=== PATIENT | male | born 1960 | race Caucasian/White ===

== ENCOUNTER 2021-04-30 08:58 | Emergency (ER) | payer BC, SELFPAY ==
--- NOTE | ~2021-04-30 | XR_ITS ---
EXAMINATION: XR CHEST CLINICAL INFORMATION: Fever COMPARISON: None TECHNIQUE: AP portable view of the chest was obtained. FINDINGS: There are diffuse bilateral regions of parenchymal disease with somewhat groundglass appearance and a more peripheral distribution consistent with Covid 19/viral pneumonitis. Heart normal size. No evidence of pulmonary edema. No pneumothorax or pleural effusion. XR/XR chest 1V IMPRESSION: Findings suggestive of viral pneumonitis.
--- NOTE | 2021-04-30 09:18 | ECG_ITS ---
Test Reason : sob Blood Pressure : / mmHG Vent. Rate : 101 BPM Atrial Rate : 101 BPM P-R Int : 152 ms QRS Dur : 086 ms QT Int : 350 ms P-R-T Axes : 031 -10 021 degrees QTc Int : 453 ms Sinus tachycardia Otherwise normal ECG No previous ECGs available Referred By: Jovita Rebolledo Electronically Signed By:FAUSTO STATON MD
[2021-04-30 09:20] VITALS: BP 137/91; PULSE 102; RESP 20; TEMP 38.2; O2SAT 96; BMI 34.7
--- NOTE | 2021-04-30 09:20 | ED_ITS ---
HPI - URI/Sore Throat General Chief Complaint: Dyspnea Stated Complaint: SOB COVID + Time Seen by Provider: 04/30/21 09:09 Source: patient Mode of arrival: ambulatory Limitations: no limitations History of Present Illness HPI Narrative: unvaccinated COVID + on Wednesday comes in with c/o coughing fits that make him feel short of breath but denies feeling chest pain or short of breath at rest or when he's walking MD elicited complaint: cough Pertinent past history: other (COVID positive on Wednesday) Onset (ago): day(s) (Wednesday) Consistency: intermittent Severity: mild Able to tolerate fluids by mouth: Yes Exacerbating factors: other (coughing) Relieving factors: rest Context: other (not vaccinated) Associated symptoms: myalgias and cough Treatments prior to arrival: none Related Data Previous Rx's Medication Instructions Recorded azithromycin 250 mg tablet 250 mg PO DAILY 4 Days #4 tab 04/30/21 benzonatate 100 mg capsule 100 mg PO TID PRN #20 cap 04/30/21 dexamethasone 6 mg tablet 6 mg PO DAILY 6 Days #6 tab 04/30/21 Allergies Allergy/AdvReac Type Severity Reaction Status Date / Time No Known Allergies Allergy Verified 04/30/21 09:18 Review of Systems Review of Systems: Constitutional : no Fever, positive Chills, positive fatigue, positive Malaise ENT/Mouth : no sore throat, positive runny nose Eyes: No Discharge Cardiovascular : No Chest Pain, No SOB Respiratory : pos Cough, No Sputum Gastrointestinal : No Nausea, No Vomiting, No Diarrhea Genitourinary : No Dysuria, No Urinary Frequency Musculoskeletal : positive Myalgia Skin : No rash Neuro : No Headache All other systems reviewed and are negative [facility] Past Medical History Medical History Diabetes TBI (traumatic brain injury) Social History Social History (Updated 04/30/21 @ 15:47 by Jovita Rebolledo DO) Patient Tobacco Use Status: Former Tobacco user Advance Directives: No Advance Directives Information Provided: No Physical Exam Vital Signs: Vital Signs: Last Vital Signs Temp 99.7 F 04/30/21 11:20 Pulse 101 H 04/30/21 09:42 Resp 18 04/30/21 09:42 BP 137/91 H 04/30/21 09:20 Pulse Ox 96 04/30/21 09:20 BMI result Body Mass Index 34.7 Appearance: Alert. Oriented X3. No acute distress. Did not drop below 96% when ambulating x 2 minutes Eyes: Pupils equal, round and reactive to light. ENT: Pharynx normal. Neck: Normal inspection. Neck supple. CVS: tachycardic heart rate and rhythm. Pulses normal. Respiratory: No respiratory distress. Breath sounds scant rhonchi dry bronchospastic cough Abdomen: Soft and non-tender. Skin: Skin warm and dry. Normal skin color. Normal skin turgor. Extremities: No lower extremity edema. No calf ttp Neuro: Oriented X 3. No motor deficit. No sensory deficit. MDM - URI/Sore Throat MDM Narrative Medical decision making narrative: 60 yo male with COVID here with c/o coughing fits that cause dyspnea he has no chest pain or shortness of breath at baseline to suggest PE/ACS - he was ambulated at bedside by me for 2 minutes with lowest sat of 96%. At this time his main complaint is cough with fits - will obtain EKG, CXR, give INH and tessalon. I did refer him to mAb therapy and did discuss with family and the patient that given his age/DM he will likely decompensate from this in the next two days and he needs to be vigilant. ECG Data Attestation: I personally reviewed and interpreted this ECG as follows: ECG interpretation date: 04/30/21 ECG interpretation time: 09:38 Interpretation: Rate: 101 Rhythm: sinus tachycardia [place]: left Normal P waves. Normal SERGE. Normal QRS complex. ST T wave : normal no SMILEY qTC: normal prior studies: no acute ischemia The study has been interpreted contemporaneously by me. . Discharge Plan Discharge Clinical Impression: COVID-19, Pneumonia due to COVID-19 virus Patient Disposition: Home, Self-Care Instructions: Viral Pneumonia (ED), COVID-19 (Coronavirus Disease 2019) (ED) Additional Instructions: return to ED for any worsening symptoms or concerns return if oxygen saturations drop below 91% if you feel worse or if your breathing declines - I am very concerned that in the next 48 hours you might worsen the steroids will increase your blood sugar please attempt to get monoclonal antibody therapy YOU CAN USE THE INHALER TAKE 2 PUFFS EVERY 2 TO 4 HOURS NEEDED FOR COUGH AND SHORTNESS OF BREATH Prescriptions: New dexamethasone 6 mg tablet 6 mg PO DAILY 6 Days Qty: 6 RF: 0 azithromycin 250 mg tablet 250 mg PO DAILY 4 Days Qty: 4 RF: 0 benzonatate 100 mg capsule 100 mg PO TID PRN (Reason: cough) Qty: 20 RF: 0 Interventions: ED Discharge Assessment Last Done: 04/30/21 11:23 Discharge Date/Time: 04/30/21 11:24
[2021-04-30] MEDS: Benzonatate 100 MG CAPSULE PO (09:39)
[2021-04-30] MEDS: Acetaminophen 325 MG TABLET 650 MG PO (09:39)
[2021-04-30 09:42] VITALS: PULSE 101; RESP 18; O2SAT 96
[2021-04-30] MEDS: Albuterol Sulfate 90 MCG 8 GM INHALER 2 PUFF INHALE (09:42)
[2021-04-30] MEDS: dexAMETHasone 6 MG TABLET PO (11:19)
[2021-04-30] MEDS: Azithromycin 500 MG TABLET PO (11:19)
[2021-04-30 11:20] VITALS: TEMP 37.6
== END 2021-04-30 11:24 | disposition home or self-care (01) ==
PROVIDERS: Emergency Provider Emergency Medicine; PCP Family Medicine
DX: U07.1 COVID-19 (principal); J12.82 Pneumonia due to coronavirus disease 2019; E11.9 Type 2 diabetes mellitus without complications; Z87.820 Personal history of traumatic brain injury
CPT/HCPCS: 71045; 93005; 94640; 99283; 99284; J8540

== ENCOUNTER 2021-05-03 08:52 | Inpatient (IN) | payer BC, SELFPAY ==
[2021-05-03] VITALS (9 sets, daily range): BP systolic 118–131; BP diastolic 69–86; PULSE 73–103; RESP 18–28; TEMP 36.7–36.8; O2SAT 88–98; BMI 349.9
--- NOTE | ~2021-05-03 | XR_ITS ---
EXAMINATION: XR CHEST CLINICAL INFORMATION: SOB COMPARISON: Chest 04/30/2021 TECHNIQUE: Frontal view of the chest was obtained. FINDINGS: The lungs are expanded with bibasilar patchy opacity suggestive of infiltrates. The heart size and pulmonary vascularity is normal. No gross bony abnormality seen. XR/XR chest 1V IMPRESSION: Bibasilar infiltrates. No acute process seen.
--- NOTE | ~2021-05-03 | XR_ITS ---
EXAMINATION: XR CHEST CLINICAL INFORMATION: Worsening shortness of breath. COMPARISON: CTA of the chest done earlier today at 04/15/2020 a.m. Chest radiograph done earlier today at 9:25 AM. TECHNIQUE: AP view of the chest was obtained. FINDINGS: Redemonstration of multifocal airspace opacities which appear slightly increased in density and size in the area of the left lower lobe. No pleural effusion or pneumothorax. Unchanged appearance of the cardiomediastinal silhouette. No acute osseous abnormalities. XR/XR chest 1V IMPRESSION: Multifocal airspace opacities which appeared increased in the left lower lobe when compared to a chest radiograph from earlier today.
--- NOTE | ~2021-05-03 | CT_ITS ---
EXAMINATION: CT ANGIOGRAM OF THE CHEST WITH AND WITHOUT CONTRAST (CT PULMONARY ANGIOGRAM FOR PE) CLINICAL INFORMATION: Reason for Exam hypoxia, COVID, elevated D-DIMER COMPARISON: None TECHNIQUE: Prior to contrast administration, noncontrast localization images were obtained. Subsequently, multidetector volumetric imaging was performed from the thoracic inlet to below the diaphragms following the administration of 80 mL Omnipaque 350 intravenous contrast. No contrast reaction reported Sagittal, coronal, and MIP oblique sagittal reformatted images were obtained on the CT workstation, uploaded to PACS, and reviewed. This CT examination was performed using dose optimization techniques as appropriate, variously including the following: *Automated exposure control *Adjustment of mA and/or kV according to patient size (this includes techniques or standardized protocols for targeted exams where dose is matched to indication/reason for exam; i.e. extremities or head) *Use of iterative reconstruction technique Total exam dose-length product 418 mGy-cm FINDINGS: QUALITY OF STUDY/CONTRAST BOLUS: Satisfactory. PULMONARY ARTERIES: No central or segmental pulmonary emboli. THORACIC AORTA: No aneurysm or dissection. LUNG: The lungs are expanded diffuse patchy linear parenchymal opacities in both upper lobes, right middle lobe, lingula and both lower lobes consistent with rhodes lobular infiltrates PLEURA: No pleural effusion or pneumothorax. MEDIASTINUM: Heart size is normal. No pericardial effusion seen. The central trachea and the bronchi widely patent. The thyroid lobes are symmetrical. No evidence of septal bowing or right heart strain. CHEST WALL/AXILLA: No axillary or internal mammary lymphadenopathy. OSSEOUS STRUCTURES: No acute or suspicious osseous abnormality. UPPER ABDOMEN: Visualized liver, spleen, pancreas and bilateral adrenal glands are unremarkable. No reflux of contrast into the hepatic veins to suggest elevated right heart pressures. CT/CT angio chest PE protocol IMPRESSION: No evidence of PE. No evidence aortic dissection. Diffuse extensive bilateral infiltrates most suggestive of Covid disease. VTE: negative
--- NOTE | 2021-05-03 08:58 | ECG_ITS ---
Test Reason : COVID Blood Pressure : / mmHG Vent. Rate : 087 BPM Atrial Rate : 087 BPM P-R Int : 144 ms QRS Dur : 092 ms QT Int : 374 ms P-R-T Axes : 042 -12 -03 degrees QTc Int : 450 ms Normal sinus rhythm Nonspecific T wave abnormality Abnormal ECG When compared with ECG of 30-APR-2021 09:33, No significant change was found Referred By: Judith Maher Electronically Signed By:FAUSTO STATON MD
--- NOTE | 2021-05-03 09:13 | ED.SOB ---
HPI - SOB/Dyspnea General Chief Complaint: Dyspnea Stated Complaint: COVID +, SOB Time Seen by Provider: 05/03/21 08:57 Source: patient and family Mode of arrival: ambulatory Limitations: no limitations History of Present Illness HPI Narrative: 60 y/o male with history of DM, TBI and recent diagnosis of COVID-19 on 04/25 (symptoms started 04/21) who presents to the ER with SOB and FAY. He was extremely short of breath this morning and found his oxygen saturations to be 77% on room air. He has been monitoring them intermittently at home with a at home pulse oximeter. He is not on oxygen at baseline. He was seen in the ER on 04/30 with some shortness of breath and coughing fits. His chest x-ray showed diffuse ground-glass opacities but his oxygen saturations remained in the 90s even with exertion. He was discharged with Decadron, azithromycin, and Tessalon. He has been compliant with the medications. He states his shortness of breath has been worsening mostly with exertion. He has to stop and catch his breath even when he takes short walks to the bathroom. He has some intermittent lightheadedness but has not felt like he was going to pass out and has not passed out. He has no chest pain. He has no nausea, vomiting, abdominal pain but admits to a decreased appetite. He is on vaccinated for COVID. No pulmonary history. MD elicited complaint: shortness of breath Pertinent past history: diabetes Onset (ago): day(s) Context: recent illness and occurred during exertion Timing: intermittent and progressively worsening Severity: severe Exacerbating factors: exertion and coughing Relieving factors: rest Known history of: diabetes Associated symptoms: cough, wheezing, chest congestion and lightheadedness Treatment prior to arrival: none Related Data Home oxygen amount: none Home Medications Medication Instructions Recorded Confirmed atorvastatin 20 mg tablet 1 tab PO BEDTIME 05/03/21 05/03/21 dapagliflozin 10 mg tablet 1 tab PO DAILY 05/03/21 05/03/21 ([facility]) glipizide 10 mg tablet 1 tab PO BID 05/03/21 05/03/21 insulin glargine U-300 conc 300 10 unit SUBCUT BEDTIME 05/03/21 05/03/21 unit/mL (1.5 mL) subcutaneous pen (Toujeo SoloStar U-300 Insulin) metformin 500 mg tablet,extended 2 tab PO BID 05/03/21 05/03/21 release 24 hr pioglitazone 45 mg tablet 1 tab PO DAILY 05/03/21 05/03/21 Previous Rx's Medication Instructions Recorded azithromycin 250 mg tablet 250 mg PO DAILY 4 Days #4 tab 04/30/21 benzonatate 100 mg capsule 100 mg PO TID PRN #20 cap 04/30/21 dexamethasone 6 mg tablet 6 mg PO DAILY 6 Days #6 tab 04/30/21 Allergies Allergy/AdvReac Type Severity Reaction Status Date / Time No Known Allergies Allergy Verified 04/30/21 09:18 Review of Systems Review of Systems: Constitutional: No Fever, No Chills ENT/Mouth: No sore throat, No Rhinorrhea, No Swallowing Difficulty Eyes: No Eye Pain, No Swelling, No Redness Cardiovascular: No Chest Pain, + SOB, No Orthopnea, No Edema Respiratory: + Cough, No Sputum, + Wheezing, + dyspnea Gastrointestinal: No Nausea, No Vomiting, No Diarrhea, No abdominal Pain, No Hematochezia, No Melena Genitourinary: No Dysuria, No Urinary Frequency, No Hematuria Musculoskeletal: No joint pain, + Myalgias Skin: No Skin Lesions, No rash Neuro: No Weakness, No Numbness, No Dizziness, + Headache Psych: No Anxiety/Panic, No Depression Heme/Lymph: No Bruising, No Lymphadenopathy Endocrine: No Polyuria, No Polydipsia [facility] Past Medical History Medical History (Updated 05/03/21 @ 11:44 by WESTLEY Gibbs) Diabetes TBI (traumatic brain injury) Surgical History (Updated 05/03/21 @ 09:20 by Maria D Emanuel) History of appendectomy Social History Social History (Updated 04/30/21 @ 15:47 by Jovita Rebolledo DO) Patient Tobacco Use Status: Former Tobacco user Use of substances other than those prescribed or required for medical reasons: No Advance Directives: No Advance Directives Information Provided: No Physical Exam Vital Signs: Vital Signs: Last Vital Signs Temp 98.1 F 05/03/21 09:16 Pulse 103 H 05/03/21 12:07 Resp 28 H 05/03/21 12:07 BP 125/71 05/03/21 12:07 Pulse Ox 89 L 05/03/21 12:07 BMI result Body Mass Index 349.9 Appearance: Alert. Oriented X3. No acute distress. Eyes: Pupils equal, round and reactive to light. ENT: Pharynx normal. Neck: Normal inspection. Neck supple. CVS: Normal heart rate and rhythm. Pulses normal. Respiratory: No respiratory distress. Breath sounds corase throughtout with ins/exp wheeze throughout the left lung Abdomen: Soft and nontender. +BS x4 Skin: Skin warm and dry. Normal skin color. Normal skin turgor. No rashes. Extremities: No lower extremity edema. No calf tenderness Neuro: Oriented X 3. No motor deficit. No sensory deficit. Course Course Course Narrative: 52-year-old male with a history of TBI, diabetes, and recently diagnosed COVID-19 who presents to the ER with worsening shortness of breath, dyspnea on exertion and new hypoxia. On arrival to the ER he is saturating 88% on room air at rest. He was slightly tachypneic in the mid 20s. No accessory muscle use. He was placed on 2 L nasal cannula with improvement in oxygen saturation to 94-95%. Will repeat CXR, EKG and inflammatory markers. Will give albuterol given wheezing. IV decadron ordered. Anticipate admission. Reevaluation(s) Reevaluation #1: Chest x-ray again showing diffuse ground-glass opacities. Aeration improved after nebulizer treatment. D-dimer elevated in the 800s. Will get CTA to rule out PE. Reevaluation #2: CTA showed no PE. Ground-glass opacities seen diffusely consistent with COVID pneumonia. Will plan for admission for further management. MDM - SOB/Dyspnea Medical Records Attestation: I reviewed the patient's medical records. Lab Data Attestation: I reviewed the patient's lab results. Result diagrams: 05/03/21 09:42 05/03/21 09:42 Labs: Lab Results 05/03/21 05/03/21 05/03/21 Range/Units 09:42 09:42 09:42 WBC 12.4 H (4.8-10.8) X10*3/uL RBC 4.88 (4.60-5.80) X10*6/uL Hgb 14.6 (14.0-18.0) g/dl Hct 41.7 L (42.0-52.0) % MCV 85.5 (80.0-98.0) fL MCH 29.9 (27.0-33.0) pg MCHC 35.0 (31.0-36.0) g/dl RDW 13.2 (11.0-16.0) % Plt Count 178 (160-400) X10*3/uL MPV 10.7 (9.4-12.4) fL Immature Gran % (Auto) 0.5 H (0.0-0.4) % Neut % (Auto) 85.6 H (45-73) % Lymph % (Auto) 9.6 L (20-40) % [place] % (Auto) 4.3 (2-11) % Eos % (Auto) 0.0 (0-4) % Baso % (Auto) 0.0 (0-2) % Lymph # (Auto) 1.2 (1.2-4.9) X10*3/uL [place] # (Auto) 0.5 (0.1-1.2) X10*3/uL Eos # (Auto) 0.0 (0.0-0.4) X10*3/uL Baso # (Auto) 0.0 (0.0-0.2) X10*3/uL Abs Immat Gran (auto) 0.06 H (0.00-0.03) X10*3/uL Absolute Neuts (auto) 10.6 H (2.0-8.3) x10*3/uL Absolute Nucleated RBC 0.000 (0.0-0.012) X10*3/uL Nucleated RBC % (auto) 0.0 (0.0-0.2) /100WBC Smear Tech's Comments VERIFIED D-Dimer High Sensitivty NG/ML Sodium 135 (135-145) mmol/L Potassium 4.8 (3.3-5.1) mmol/L Chloride 101 (96-108) mmol/L Carbon Dioxide 22 (22-29) mmol/L Anion Gap 17 (12-20) BUN 23 H (9-16) mg/dL Creatinine 0.84 (0.5-1.4) mg/dL Estim Creat Clear Calc 640.5 Estimated GFR > 60 Random Glucose 170 H (60-115) mg/dL Lactic Acid 1.3 (0.5-2.0) mmol/L Calcium 9.1 (8.4-10.2) mg/dL Magnesium 2.2 (1.6-2.6) mg/dL Ferritin 2068 H (20-250) ng/mL Total Bilirubin 0.9 (0.0-1.0) mg/dL Direct Bilirubin 0.4 (0.0-0.5) mg/dL AST 52 H (5-37) U/L ALT 29 (0-40) U/L Alkaline Phosphatase 78 (39-117) U/L C-Reactive Protein 2.63 H (< or = 0.50) mg/dL B-Natriuretic Peptide (<100) pg/mL Total Protein 6.9 (6.5-8.0) g/dL Albumin 3.8 (3.5-5.0) g/dL Procalcitonin ng/mL 05/03/21 05/03/21 05/03/21 Range/Units 09:42 09:42 09:42 WBC (4.8-10.8) X10*3/uL RBC (4.60-5.80) X10*6/uL Hgb (14.0-18.0) g/dl Hct (42.0-52.0) % MCV (80.0-98.0) fL MCH (27.0-33.0) pg MCHC (31.0-36.0) g/dl RDW (11.0-16.0) % Plt Count (160-400) X10*3/uL MPV (9.4-12.4) fL Immature Gran % (Auto) (0.0-0.4) % Neut % (Auto) (45-73) % Lymph % (Auto) (20-40) % [place] % (Auto) (2-11) % Eos % (Auto) (0-4) % Baso % (Auto) (0-2) % Lymph # (Auto) (1.2-4.9) X10*3/uL [place] # (Auto) (0.1-1.2) X10*3/uL Eos # (Auto) (0.0-0.4) X10*3/uL Baso # (Auto) (0.0-0.2) X10*3/uL Abs Immat Gran (auto) (0.00-0.03) X10*3/uL Absolute Neuts (auto) (2.0-8.3) x10*3/uL Absolute Nucleated RBC (0.0-0.012) X10*3/uL Nucleated RBC % (auto) (0.0-0.2) /100WBC Smear Tech's Comments D-Dimer High Sensitivty 864 NG/ML Sodium (135-145) mmol/L Potassium (3.3-5.1) mmol/L Chloride (96-108) mmol/L Carbon Dioxide (22-29) mmol/L Anion Gap (12-20) BUN (9-16) mg/dL Creatinine (0.5-1.4) mg/dL Estim Creat Clear Calc Estimated GFR Random Glucose (60-115) mg/dL Lactic Acid (0.5-2.0) mmol/L Calcium (8.4-10.2) mg/dL Magnesium (1.6-2.6) mg/dL Ferritin (20-250) ng/mL Total Bilirubin (0.0-1.0) mg/dL Direct Bilirubin (0.0-0.5) mg/dL AST (5-37) U/L ALT (0-40) U/L Alkaline Phosphatase (39-117) U/L C-Reactive Protein (< or = 0.50) mg/dL B-Natriuretic Peptide 42 (<100) pg/mL Total Protein (6.5-8.0) g/dL Albumin (3.5-5.0) g/dL Procalcitonin 0.26 ng/mL 05/03/21 Range/Units 09:42 WBC (4.8-10.8) X10*3/uL RBC (4.60-5.80) X10*6/uL Hgb (14.0-18.0) g/dl Hct (42.0-52.0) % MCV (80.0-98.0) fL MCH (27.0-33.0) pg MCHC (31.0-36.0) g/dl RDW (11.0-16.0) % Plt Count (160-400) X10*3/uL MPV (9.4-12.4) fL Immature Gran % (Auto) (0.0-0.4) % Neut % (Auto) (45-73) % Lymph % (Auto) (20-40) % [place] % (Auto) (2-11) % Eos % (Auto) (0-4) % Baso % (Auto) (0-2) % Lymph # (Auto) (1.2-4.9) X10*3/uL [place] # (Auto) (0.1-1.2) X10*3/uL Eos # (Auto) (0.0-0.4) X10*3/uL Baso # (Auto) (0.0-0.2) X10*3/uL Abs Immat Gran (auto) (0.00-0.03) X10*3/uL Absolute Neuts (auto) (2.0-8.3) x10*3/uL Absolute Nucleated RBC (0.0-0.012) X10*3/uL Nucleated RBC % (auto) (0.0-0.2) /100WBC Smear Tech's Comments D-Dimer High Sensitivty NG/ML Sodium (135-145) mmol/L Potassium (3.3-5.1) mmol/L Chloride (96-108) mmol/L Carbon Dioxide (22-29) mmol/L Anion Gap (12-20) BUN (9-16) mg/dL Creatinine (0.5-1.4) mg/dL Estim Creat Clear Calc Estimated GFR Random Glucose (60-115) mg/dL Lactic Acid (0.5-2.0) mmol/L Calcium (8.4-10.2) mg/dL Magnesium (1.6-2.6) mg/dL Ferritin Cancelled (20-250) ng/mL Total Bilirubin (0.0-1.0) mg/dL Direct Bilirubin (0.0-0.5) mg/dL AST (5-37) U/L ALT (0-40) U/L Alkaline Phosphatase (39-117) U/L C-Reactive Protein (< or = 0.50) mg/dL B-Natriuretic Peptide (<100) pg/mL Total Protein (6.5-8.0) g/dL Albumin (3.5-5.0) g/dL Procalcitonin ng/mL ECG Data Attestation: I personally reviewed and interpreted this ECG as follows: ECG interpretation date: 05/03/21 ECG interpretation time: 11:43 Prior ECG tracings: available for review Interpretation: Normal sinus rhythm, heart rate 87 ppm, [place] interval 144 MS, nonspecific T-wave abnormality, no ST segment elevations or depressions. Critical Care Time Critical Care Time Critical Care Time: Yes Total Critical Care Time: 41 Attestation: I have personally provided critical care time exclusive of time spent on separately billable procedures. Time includes review of lab data, radiology results, discussion with consultants/hospitalists, and monitoring for potential decompensation. Intervention performed as documented. Discharge Plan Discharge Clinical Impression: COVID-19, Acute respiratory failure with hypoxia Patient Disposition: Admitted As Inpatient
[2021-05-03] MEDS: dexAMETHasone sod phosphate 4 MG/ML VIAL 8 MG IVPUSH (09:45)
[2021-05-03 09:50] LABS: Hematocrit 41.7 % (42.0-52.0); Hemoglobin 14.6 g/dl (14.0-18.0); Imm Gran Abs Auto 0.06 X10*3/uL (0.00-0.03); Imm Gran Pct Auto 0.5 % (0.0-0.4); Lymphocytes Absolute Auto 1.2 X10*3/uL (1.2-4.9); Lymphocytes Percent Auto 9.6 % (20-40); MANUAL DIFF FLAG SCAN; Mean Corpuscular Hemoglobin 29.9 pg (27.0-33.0); Mean Corpuscular Volume 85.5 fL (80.0-98.0); Mean Platelet Volume 10.7 fL (9.4-12.4); Monocytes Absolute Auto 0.5 X10*3/uL (0.1-1.2); Monocytes Percent Auto 4.3 % (2-11); Neutrophils Absolute Auto 10.6 x10*3/uL (2.0-8.3); Neutrophils Percent Auto 85.6 % (45-73); Platelet Count 178 X10*3/uL (160-400); Red Blood Count 4.88 X10*6/uL (4.60-5.80); Red Cell Distribution Width 13.2 % (11.0-16.0); SCAN SMEAR FLAG 1; White Blood Count 12.4 X10*3/uL (4.8-10.8)
[2021-05-03 10:00] LABS: D Dimer High Sensitivity 864 NG/ML; Lactic Acid 1.3 mmol/L (0.5-2.0)
[2021-05-03 10:06] LABS: Alanine Aminotransferase 29 U/L (0-40); Albumin Level 3.8 g/dL (3.5-5.0); Alkaline Phosphatase 78 U/L (39-117); Anion Gap 17 (12-20); Aspartate Amino Transferase 52 U/L (5-37); Bilirubin Direct 0.4 mg/dL (0.0-0.5); Bilirubin Total 0.9 mg/dL (0.0-1.0); Blood Urea Nitrogen 23 mg/dL (9-16); C Reactive Protein 2.63 mg/dL (< or = 0.50); Calcium 9.1 mg/dL (8.4-10.2); Carbon Dioxide 22 mmol/L (22-29); Chloride 101 mmol/L (96-108); Creatinine Clr Calc Pharmacy 640.5; Estimated Glomerular Filt Rate > 60; Glucose Random 170 mg/dL (60-115); Magnesium 2.2 mg/dL (1.6-2.6); Potassium 4.8 mmol/L (3.3-5.1); Sodium 135 mmol/L (135-145); Total Protein 6.9 g/dL (6.5-8.0)
[2021-05-03 10:10] LABS: B Type Natriuretic Peptide 42 pg/mL (<100)
[2021-05-03] MEDS: Albuterol Sulfate (0.083%) 2.5 MG/3 ML VIAL.NEB 5 MG INHALE (10:27)
[2021-05-03 10:35] LABS: Procalcitonin 0.26 ng/mL
[2021-05-03 11:04] LABS: Ferritin 2068 ng/mL (20-250)
[2021-05-03] MEDS: iohexoL 350 MG/ML 100 ML INFUS..BTL IV (11:32)
[2021-05-03 11:35] LABS: SLIDE REVIEW VERIFIED
--- NOTE | 2021-05-03 11:46 | PHA.MEDREC ---
Pharmacy Consult ? Medication Reconciliation Pharmacy has completed the medication reconciliation.
--- NOTE | 2021-05-03 11:47 | PC.NURSE ---
pt is currently resting in the stretcher, alert and oriented, skin pwd, respirations even and unlabored but breathing anywhere from 22-26 respirations a min. sinus tach on the monitor ranges from 106-100,
[2021-05-03 12:44] LABS: Appearance Urine CLEAR; Color Urine YELLOW; Glucose Urine UA >=1000 MG/DL (NEG); Leukocyte Esterase Urine NEG (NEG); Nitrite Urine NEG (NEG); PH 5.5 (5.0-8.0); Specific Gravity - Urine <= 1.005 (1.005-1.025); Urine Blood NEG (NEG); Urine Ketones 40 MG/DL (NEG); Urine Protein NEG (NEG-TRACE)
[2021-05-03 12:49] LABS: RBC Urine 0 /HPF (0); Squamous Epithelial Cell Urine 2+ /LPF; WBC Urine 0 /HPF (0-4)
[2021-05-03 12:59] LABS: Estimated Average Glucose 180 mg/dL; Hemoglobin A1c % 7.9 %
[2021-05-03 13:00] LABS: Lactate Dehydrogenase 721 U/L (118-273)
--- NOTE | 2021-05-03 13:16 | P.HPHOSP_ITS ---
History of Present Illness Date of Service: 05/03/21 Chief Complaint: dyspnea 60yo M with DM2, obesity, and history of TBI who developed cough and dyspnea on 04/21, after 3 other people at his workplace tested positive for Covid-19. He was not vaccinated against Covid-19. He himself tested positive on 04/25. Due to worsening coughing fits, he was evaluated in the ED on 04/30/21. He was not hypoxic, and he was discharged on dexamethasone and azithromycin. However, the dyspnea has worsened to the point where he has to stop walking to even go to the bathroom. This morning, he found his SaO2 was 77% by home pulse oximeter. He has no history of CAD, HTN, COPD, or asthma. He was given IV dexamethasone in the ED. CT angio of the chest was negative for PE. He does not smoke cigarettes. He denies chest pain, fever, nausea, vomiting, or diarrhea. Review of Systems Review of Systems: Yes all other systems are reviewed and are negative [facility] Medical History (Updated 05/03/21 @ 13:26 by Marciruz Moura MD) Diabetes Dyslipidemia TBI (traumatic brain injury) Functional capacity: independent ambulation Pertinent family history: no DM or VTE Surgical History History of appendectomy Social History Patient Tobacco Use Status: Former Tobacco user Use of substances other than those prescribed or required for medical reasons: No Advance Directives: No Advance Directives Information Provided: No Meds Allergies Allergy/AdvReac Type Severity Reaction Status Date / Time No Known Allergies Allergy Verified 04/30/21 09:18 Active Medications: Current Medications Acetaminophen (Acetaminophen 325 Mg Tablet) 650 mg PO Q6H PRN PRN Reason: Pain, Mild (Pain Scale 1-3) Atorvastatin Calcium (Atorvastatin Calcium 20 Mg Tablet) 20 mg PO BEDTIME ION Benzonatate (Benzonatate 100 Mg Capsule) 100 mg PO TID PRN PRN Reason: cough Dexamethasone Sodium Phosphate (Dexamethasone Sod Phosphate 4 Mg/Ml Vial) 6 mg IVPUSH DAILY ION Stop: 05/12/21 09:01 Dextrose (Dextrose 50 % 25 Gm/50 Ml Vial) 25 gm IVPUSH Q15M PRN; Protocol PRN Reason: per Hypoglycemia Standing Ord. Enoxaparin Sodium (Enoxaparin Sodium 40 Mg/0.4 Ml Syringe) 40 mg SUBCUT Q24H ION Glucose (Glucose Gel 15 Gm Gel..Gram.) 15 gm PO Q15M PRN; Protocol PRN Reason: per Hypoglycemia Standing Ord. Insulin Glargine (Insulin Glargine,Hum.Rec.Anlog 100 Unit/Ml 10 Ml Vial) 8 unit SUBCUT BEDTIME ION Insulin Human Lispro (Insulin Lispro 100 Unit/Ml 3 Ml Vial) 0 unit SUBCUT QIDACHS ION; Protocol Ondansetron HCl (Ondansetron Hcl 4 Mg/2 Ml Vial) 4 mg IVPUSH Q8H PRN PRN Reason: Nausea and Vomiting Pharmacy Consult (Consult Rx Perform Med Rec) 1 each MISCELLANE ONCE PRN PRN Reason: Consult order Sodium Chloride (0.9 % Sodium Chloride Flush 3 Ml Syringe) 3 ml IVFLUSH QSHIFT [facility] Home Medications Medication Instructions Recorded Confirmed Last Taken Type atorvastatin 20 mg tablet 1 tab PO BEDTIME 05/03/21 05/03/21 05/02/21 History dapagliflozin 10 mg tablet 1 tab PO DAILY 05/03/21 05/03/21 05/03/21 History (Farxiga) glipizide 10 mg tablet 1 tab PO BID 05/03/21 05/03/21 05/03/21 History insulin glargine U-300 conc 300 10 unit SUBCUT BEDTIME 05/03/21 05/03/21 05/02/21 History unit/mL (1.5 mL) subcutaneous pen (Katy Rick U-300 Insulin) metformin 500 mg tablet,extended 2 tab PO BID 05/03/21 05/03/21 05/03/21 History release 24 hr pioglitazone 45 mg tablet 1 tab PO DAILY 05/03/21 05/03/21 05/03/21 History Physical Exam Vital Signs and Narrative: Vital Signs: Last Vital Signs Temp 98.1 F 05/03/21 09:16 Pulse 103 H 05/03/21 12:07 Resp 28 H 05/03/21 12:07 BP 125/71 05/03/21 12:07 Pulse Ox 89 L 05/03/21 12:07 BMI result Body Mass Index 349.9 Gen: quite tachypneic HEENT: sclera anicteric, moist mucus membranes Neck: supple Lungs: clear to auscultation bilaterally, tachypneic Heart: tachycardic, regular, no murmurs Abd: soft, non-tender, non-distended, obese Ext: no edema Skin: warm/well-perfused Neuro: alert and oriented x3, no focal findings Psych: appropriate affect Results Labs CBC and Chem 7: 05/03/21 09:42 05/03/21 09:42 Labs: Laboratory Results - last 24 hr 05/03/21 05/03/21 05/03/21 09:42 09:42 09:42 MCV 85.5 MCH 29.9 MCHC 35.0 RDW 13.2 Plt Count 178 MPV 10.7 Immature Gran % (Auto) 0.5 H Neut % (Auto) 85.6 H Lymph % (Auto) 9.6 L [place] % (Auto) 4.3 Eos % (Auto) 0.0 Baso % (Auto) 0.0 Lymph # (Auto) 1.2 [place] # (Auto) 0.5 Eos # (Auto) 0.0 Baso # (Auto) 0.0 Abs Immat Gran (auto) 0.06 H Absolute Neuts (auto) 10.6 H Absolute Nucleated RBC 0.000 Nucleated RBC % (auto) 0.0 Smear Tech's Comments VERIFIED D-Dimer High Sensitivty Anion Gap 17 Estim Creat Clear Calc 640.5 Estimated GFR > 60 Random Glucose 170 H Estimat Average Glucose Hemoglobin A1c % Lactic Acid 1.3 Calcium 9.1 Magnesium 2.2 Ferritin 2068 H Total Bilirubin 0.9 Direct Bilirubin 0.4 AST 52 H ALT 29 Alkaline Phosphatase 78 Lactate Dehydrogenase 721 H C-Reactive Protein 2.63 H B-Natriuretic Peptide Total Protein 6.9 Albumin 3.8 Procalcitonin Urine Color Urine Appearance Urine pH Ur Specific [place] Urine Protein Urine Glucose (UA) Urine Ketones Urine Blood Urine Nitrite Ur Leukocyte Esterase Urine RBC Urine WBC Ur Squamous Epith Cells Urine Bacteria 05/03/21 05/03/21 05/03/21 09:42 09:42 09:42 MCV MCH MCHC RDW Plt Count MPV Immature Gran % (Auto) Neut % (Auto) Lymph % (Auto) [place] % (Auto) Eos % (Auto) Baso % (Auto) Lymph # (Auto) [place] # (Auto) Eos # (Auto) Baso # (Auto) Abs Immat Gran (auto) Absolute Neuts (auto) Absolute Nucleated RBC Nucleated RBC % (auto) Smear Tech's Comments D-Dimer High Sensitivty 864 Anion Gap Estim Creat Clear Calc Estimated GFR Random Glucose Estimat Average Glucose Hemoglobin A1c % Lactic Acid Calcium Magnesium Ferritin Total Bilirubin Direct Bilirubin AST ALT Alkaline Phosphatase Lactate Dehydrogenase C-Reactive Protein B-Natriuretic Peptide 42 Total Protein Albumin Procalcitonin 0.26 Urine Color Urine Appearance Urine pH Ur Specific [place] Urine Protein Urine Glucose (UA) Urine Ketones Urine Blood Urine Nitrite Ur Leukocyte Esterase Urine RBC Urine WBC Ur Squamous Epith Cells Urine Bacteria 05/03/21 05/03/21 05/03/21 09:42 09:42 12:15 MCV MCH MCHC RDW Plt Count MPV Immature Gran % (Auto) Neut % (Auto) Lymph % (Auto) [place] % (Auto) Eos % (Auto) Baso % (Auto) Lymph # (Auto) [place] # (Auto) Eos # (Auto) Baso # (Auto) Abs Immat Gran (auto) Absolute Neuts (auto) Absolute Nucleated RBC Nucleated RBC % (auto) Smear Tech's Comments D-Dimer High Sensitivty Anion Gap Estim Creat Clear Calc Estimated GFR Random Glucose Estimat Average Glucose 180 Hemoglobin A1c % 7.9 Lactic Acid Calcium Magnesium Ferritin Cancelled Total Bilirubin Direct Bilirubin AST ALT Alkaline Phosphatase Lactate Dehydrogenase C-Reactive Protein B-Natriuretic Peptide Total Protein Albumin Procalcitonin Urine Color YELLOW Urine Appearance CLEAR Urine pH 5.5 Ur Specific [place] <= 1.005 Urine Protein NEG Urine Glucose (UA) >=1000 H Urine Ketones 40 Urine Blood NEG Urine Nitrite NEG Ur Leukocyte Esterase NEG Urine RBC 0 Urine WBC 0 Ur Squamous Epith Cells 2+ Urine Bacteria NONE Impressions Chest X-Ray 05/03/21 09:30 IMPRESSION: Bibasilar infiltrates. No acute process seen. Chest CTA 05/03/21 11:30 IMPRESSION: No evidence of PE. No evidence aortic dissection. Diffuse extensive bilateral infiltrates most suggestive of Covid disease. VTE: negative Imaging Radiologist's Impressions: Impressions Chest X-Ray 05/03/21 09:30 IMPRESSION: Bibasilar infiltrates. No acute process seen. Chest CTA 05/03/21 11:30 IMPRESSION: No evidence of PE. No evidence aortic dissection. Diffuse extensive bilateral infiltrates most suggestive of Covid disease. VTE: negative Assessment and Plan (1) COVID-19: Status: Acute (2) Acute respiratory failure with hypoxia: Status: Acute 60yo M with DM2 and obesity presenting with hypoxia on d#12 of illness with Covid-19 infection # Covid-19 pneumonia - admit to IMC/[facility], give dexamethasone, consult ID, to consider baricitinib if worsens, O2 as below, no clear indication for ABX at this time # acute hypoxic respiratory failure - currently on 3L O2 via NC, wean as tolerated, encourage awake proning # DM2 - A1c 7.9. Hold OHGs, continue basal insulin, and give correction-dose bolus insulin. Watch for steroid-induced hyperglycemia # dyslipidemia - Continue atorvastatin # VTE ppx - Mod-high risk; place SCDs and give LMWH # code - Full Quality Stroke Does the patient have a stroke diagnosis?: No VTE Prior VTE?: No VTE Risk Level:: Medical - moderate - high VTE Device Contraindication: N/A - Device Ordered VTE Drug Contraindication: N/A - Med Ordered
--- NOTE | 2021-05-03 13:17 | PC.NURSE ---
pt's oxygen increased from 2L to 3l was sating 91% now 92% on the 2l
--- NOTE | 2021-05-03 14:50 | PC.NURSE ---
PT VOIDED 400ML CLEAR URINE
[2021-05-03] MEDS: Enoxaparin Sodium 40 MG/0.4 ML SYRINGE SUBCUT (14:54)
[2021-05-03 15:24] LABS: COVID-19 Test Positive (Negative)
--- NOTE | 2021-05-03 16:15 | MHC.CM.PN ---
Met with patient in regards to discharge planning. Patient lives with his , ambulates independently and had no services prior to coming to the hospital. PCP is Dr Balbina Tur[place]. Patient has a HCP and will attempt to obtain a copy. Patient tested positive for Covid on 04/25. Patient has not been vaccinated. Anticipate patient will return home when medically stable. Patient's will transport at d/c. Continue to monitor for d/c needs.
[2021-05-03 18:54] LABS: Glucose, Whole Blood 308 mg/dL (60-115)
[2021-05-03] MEDS: Insulin Lispro 100 UNIT/ML 3 ML VIAL SUBCUT ×2 (18:59→22:16)
[2021-05-03 20:14] LABS: Glucose, Whole Blood 252 mg/dL (60-115)
--- NOTE | 2021-05-03 20:21 | PC.NURSE ---
pt 02 sat dropped to 86% on 2L nc. pt sitting on edge of bed, denies feeling SOB, speaking in full sentences but c/o being unable to rest comfortably in bed. pt nc increased to 6L, pt 02 sat remains at 86%. pt switch to NRB at 15+ L/m respiratory paged to bedside
--- NOTE | 2021-05-03 20:36 | PC.NURSE ---
This RN to bedside to assist primary RN. Primary RN Refugio found placing onto NRB at time of this RN entry to room as pt was desat to high 80s. Pt now with sat 98%R on 15+LPM on NRB. End tidal 22-23mmHg, primary RN is aware and instructed to notify provider to recommend blood gas. Pt sitting on edge of bed, encouraged into tripod position onto table in front of patient. Pt tolerating at this time but expresses fear this will cause discomfort in time. pt also refusing to self-prone at this time stating No, I always only sleep on my right side which is what started this whole fiasco. Per primary RN who spoke with Dr Fisher, plan for CXR, ABG, and morphine at this time. RT aware, awaiting their arrival to room.
--- NOTE | 2021-05-03 20:43 | PC.NURSE ---
XR at bedside
[2021-05-03] MEDS: Morphine Sulfate 4 MG/ML CARTRIDGE IVPUSH (20:47)
--- NOTE | 2021-05-03 20:51 | PC.NURSE ---
RT at bedside to obtain ABG. Per RT, plan for veloz nasal cannula
--- NOTE | 2021-05-03 21:06 | PC.NURSE ---
RT unable to obtain ABG x 2 attempts. This RN ordered and obtained VBG. Primary RN aware. This RN awaiting RT to change pt from NRB to another form of O2 delivery device.
[2021-05-03 21:12] LABS: VBG Base Excess -3.8 mmol/L; VBG HCO3 17 mmol/L (22-26); VBG pCO2 22 mmHg; VBG pH 7.48 (7.32-7.43); VBG pO2 142 mmHg
[2021-05-03 21:13] LABS: Venous Blood Gas Refer to POC result
--- NOTE | 2021-05-03 21:21 | PC.NURSE ---
Rt notified of pt's VBG. RT instructed this RN to place pt on Chacko NC, provided equipment to this RN. This RN to bedside, placed pt on chacko at 10lpm
[2021-05-03 22:00] LABS: Glucose, Whole Blood 207 mg/dL (60-115)
[2021-05-03] MEDS: Atorvastatin Calcium 20 MG TABLET PO (22:14)
[2021-05-03] MEDS: Insulin Glargine,Hum.rec.anlog 100 UNIT/ML 10 ML VIAL 8 UNIT SUBCUT (22:17)
[2021-05-04] VITALS (14 sets, daily range): BP systolic 112–133; BP diastolic 56–84; PULSE 61–93; RESP 16–24; TEMP 36.1–36.8; O2SAT 89–100; BMI 34.7
--- NOTE | 2021-05-04 03:40 | PC.NURSE ---
pt desat to 89% on veloz/nc. pt sitting on edge of bed, denies feeling SOB and remains otherwise asymptomatic. this nurse contacted RT, per RT switch pt to NRB at 15+ L/m. pt 02 sat now 90% on 15+ L/m NRB Respiratory paged to bedside to assess pt
[2021-05-04 07:30] LABS: Hematocrit 38.8 % (42.0-52.0); Hemoglobin 13.2 g/dl (14.0-18.0); Mean Corpuscular Hemoglobin 29.5 pg (27.0-33.0); Mean Corpuscular Volume 86.8 fL (80.0-98.0); Mean Platelet Volume 10.5 fL (9.4-12.4); Platelet Count 208 X10*3/uL (160-400); Red Blood Count 4.47 X10*6/uL (4.60-5.80); Red Cell Distribution Width 13.3 % (11.0-16.0); White Blood Count 11.5 X10*3/uL (4.8-10.8)
[2021-05-04] MEDS: 0.9 % Sodium Chloride Flush 3 ML SYRINGE IVFLUSH ×3 (07:44→20:50)
[2021-05-04 07:47] LABS: Alanine Aminotransferase 24 U/L (0-40); Albumin Level 3.5 g/dL (3.5-5.0); Alkaline Phosphatase 70 U/L (39-117); Anion Gap 15 (12-20); Aspartate Amino Transferase 36 U/L (5-37); Bilirubin Total 0.7 mg/dL (0.0-1.0); Blood Urea Nitrogen 25 mg/dL (9-16); Calcium 8.8 mg/dL (8.4-10.2); Carbon Dioxide 23 mmol/L (22-29); Chloride 102 mmol/L (96-108); Creatinine Clr Calc Pharmacy 591.2; Estimated Glomerular Filt Rate > 60; Glucose Random 161 mg/dL (60-115); Potassium 4.6 mmol/L (3.3-5.1); Sodium 135 mmol/L (135-145); Total Protein 6.4 g/dL (6.5-8.0)
[2021-05-04 07:48] LABS: Glucose, Whole Blood 180 mg/dL (60-115)
[2021-05-04] MEDS: Insulin Lispro 100 UNIT/ML 3 ML VIAL SUBCUT ×4 (07:53→20:50)
[2021-05-04] MEDS: dexAMETHasone sod phosphate 4 MG/ML VIAL 6 MG IVPUSH (07:53)
[2021-05-04] MEDS: Pioglitazone HCL 45 MG TABLET PO (09:18)
[2021-05-04 11:37] LABS: C Reactive Protein 1.23 mg/dL (< or = 0.50)
[2021-05-04 12:16] LABS: Glucose, Whole Blood 277 mg/dL (60-115)
--- NOTE | 2021-05-04 13:01 | HO.PM.IMPN ---
Subjective Subjective Date of Service: 05/04/21 Interval History: Worsening hypoxia overnight, placed on NRB and now HFNC Denies chest pain No fever Review of Systems Review of Systems: Yes all other systems are reviewed and are negative Physical Exam Vital Signs: Vital Signs: Last Vital Signs Temp 98.1 F 05/04/21 12:11 Pulse 75 05/04/21 12:11 Resp 24 H 05/04/21 12:11 BP 127/77 05/04/21 12:11 Pulse Ox 93 05/04/21 12:11 BMI result Body Mass Index 349.9 Gen: mild respiratory distress HEENT: sclera anicteric, moist mucus membranes Neck: supple Lungs: clear to auscultation bilaterally, tachypneic Heart: RRR, no murmurs Abd: soft, non-tender, non-distended, obese Ext: no edema Skin: warm/well-perfused Neuro: alert and oriented x3, no focal findings Psych: appropriate affect Objective Data Active Medications Acetaminophen (Acetaminophen 325 Mg Tablet) 650 mg PO Q6H PRN PRN Reason: Pain, Mild (Pain Scale 1-3) Atorvastatin Calcium (Atorvastatin Calcium 20 Mg Tablet) 20 mg PO BEDTIME [facility] Last Admin: 05/03/21 22:14 Dose: 20 mg Documented by: GREGG Benzonatate (Benzonatate 100 Mg Capsule) 100 mg PO TID PRN PRN Reason: cough Dexamethasone Sodium Phosphate (Dexamethasone Sod Phosphate 4 Mg/Ml Vial) 6 mg IVPUSH DAILY [facility] Stop: 05/12/21 09:01 Last Admin: 05/04/21 07:53 Dose: 6 mg Documented by: JOSH Dextrose (Dextrose 50 % 25 Gm/50 Ml Vial) 25 gm IVPUSH Q15M PRN; Protocol PRN Reason: per Hypoglycemia Standing Ord. Enoxaparin Sodium (Enoxaparin Sodium 40 Mg/0.4 Ml Syringe) 40 mg SUBCUT Q24H [facility] Last Admin: 05/03/21 14:54 Dose: 40 mg Documented by: ARIEL Glucose (Glucose Gel 15 Gm Gel..Gram.) 15 gm PO Q15M PRN; Protocol PRN Reason: per Hypoglycemia Standing Ord. Insulin Glargine (Insulin Glargine,Hum.Rec.Anlog 100 Unit/Ml 10 Ml Vial) 8 unit SUBCUT BEDTIME [facility] Last Admin: 05/03/21 22:17 Dose: 8 unit Documented by: GREGG Insulin Human Lispro (Insulin Lispro 100 Unit/Ml 3 Ml Vial) 0 unit SUBCUT QIDACHS [facility]; Protocol Last Admin: 05/04/21 12:23 Dose: 6 unit Documented by: JOSH Non-Formulary Medication (Dapagliflozin [Farxiga]) 1 tab PO DAILY [facility] Ondansetron HCl (Ondansetron Hcl 4 Mg/2 Ml Vial) 4 mg IVPUSH Q8H PRN PRN Reason: Nausea and Vomiting Pharmacy Consult (Consult Rx Perform Med Rec) 1 each MISCELLANE ONCE PRN PRN Reason: Consult order Pioglitazone HCl (Pioglitazone Hcl 45 Mg Tablet) 45 mg PO DAILY [facility] Last Admin: 05/04/21 09:18 Dose: 45 mg Documented by: JOSH Sodium Chloride (0.9 % Sodium Chloride Flush 3 Ml Syringe) 3 ml IVFLUSH QSHIFT [facility] Last Admin: 05/04/21 07:44 Dose: 3 ml Documented by: JOSH Labs CBC & Chem 7: 05/04/21 07:16 05/04/21 07:16 Labs: Laboratory Results - last 24 hr 05/03/21 05/03/21 05/03/21 15:12 18:47 20:10 MCV MCH MCHC RDW Plt Count MPV Absolute Nucleated RBC Nucleated RBC % (auto) VBG pH VBG pCO2 VBG pO2 VBG HCO3 VBG O2 Saturation VBG Base Excess Anion Gap Estim Creat Clear Calc Estimated GFR POC Glucose 308 H 252 H Random Glucose Calcium Total Bilirubin AST ALT Alkaline Phosphatase C-Reactive Protein Total Protein Albumin COVID-19 (KENDRA) Positive A COVID-19 Clin Com See Note 05/03/21 05/03/21 05/04/21 21:07 21:55 07:16 MCV 86.8 MCH 29.5 MCHC 34.0 RDW 13.3 Plt Count 208 MPV 10.5 Absolute Nucleated RBC 0.000 Nucleated RBC % (auto) 0.0 VBG pH 7.48 H VBG pCO2 22 VBG pO2 142 VBG HCO3 17 L VBG O2 Saturation 98.0 VBG Base Excess -3.8 Anion Gap Estim Creat Clear Calc Estimated GFR POC Glucose 207 H Random Glucose Calcium Total Bilirubin AST ALT Alkaline Phosphatase C-Reactive Protein Total Protein Albumin COVID-19 (KENDRA) COVID-19 Clin Com 05/04/21 05/04/21 05/04/21 07:16 07:41 12:13 MCV MCH MCHC RDW Plt Count MPV Absolute Nucleated RBC Nucleated RBC % (auto) VBG pH VBG pCO2 VBG pO2 VBG HCO3 VBG O2 Saturation VBG Base Excess Anion Gap 15 Estim Creat Clear Calc 591.2 Estimated GFR > 60 POC Glucose 180 H 277 H Random Glucose 161 H Calcium 8.8 Total Bilirubin 0.7 AST 36 ALT 24 Alkaline Phosphatase 70 C-Reactive Protein 1.23 H Total Protein 6.4 L Albumin 3.5 COVID-19 (KENDRA) COVID-19 Clin Com Microbiology Microbiology Results: Microbiology 05/03/21 09:42 Blood Culture - Preliminary Blood - Venous No growth after 24 hours. Assessment and Plan (1) COVID-19: Status: Acute (2) Acute respiratory failure with hypoxia: Status: Acute Assessment and Plan: hospital d#2 60yo M with DM2 and obesity presenting with hypoxia on d#12 of illness with Covid-19 infection # severe Covid-19 pneumonia - dexamethasone d#2. inflammatory markers relatively low but worsening O2 requirement. ID consult pending. # acute hypoxic respiratory failure - HFNC, wean as tolerated, encourage awake proning # DM2 with steroid-induced hyperglycemia - A1c 7.9 - OHGs held; continue basal insulin and increase correction-dose bolus insulin # dyslipidemia - continue atorvastatin # VTE ppx - LMWH Quality Stroke Does the patient have a stroke diagnosis?: No VTE Prior VTE?: No VTE Risk Level:: Medical - moderate - high VTE Device Contraindication: N/A - Device Ordered VTE Drug Contraindication: N/A - Med Ordered
[2021-05-04] MEDS: Enoxaparin Sodium 40 MG/0.4 ML SYRINGE SUBCUT (14:46)
[2021-05-04 17:37] LABS: Glucose, Whole Blood 356 mg/dL (60-115)
[2021-05-04 20:43] LABS: Glucose, Whole Blood 293 mg/dL (60-115)
[2021-05-04] MEDS: Insulin Glargine,Hum.rec.anlog 100 UNIT/ML 10 ML VIAL 8 UNIT SUBCUT (20:49)
[2021-05-04] MEDS: Atorvastatin Calcium 20 MG TABLET PO (20:50)
[2021-05-05] VITALS (13 sets, daily range): BP systolic 108–136; BP diastolic 55–84; PULSE 72–92; RESP 14–20; TEMP 36.2–37.6; O2SAT 88–100
[2021-05-05 06:56] LABS: Anion Gap 15 (12-20); Blood Urea Nitrogen 22 mg/dL (9-16); C Reactive Protein 0.69 mg/dL (< or = 0.50); Carbon Dioxide 26 mmol/L (22-29); Chloride 101 mmol/L (96-108); Creatinine Clr Calc Pharmacy 99.8; Estimated Glomerular Filt Rate > 60; Glucose Random 144 mg/dL (60-115); Potassium 4.7 mmol/L (3.3-5.1); Sodium 137 mmol/L (135-145)
[2021-05-05 07:04] LABS: D Dimer High Sensitivity 727 NG/ML
[2021-05-05 08:03] LABS: Glucose, Whole Blood 188 mg/dL (60-115)
[2021-05-05] MEDS: 0.9 % Sodium Chloride Flush 3 ML SYRINGE IVFLUSH ×3 (08:58→21:08)
[2021-05-05] MEDS: Pioglitazone HCL 45 MG TABLET PO (08:58)
[2021-05-05] MEDS: Insulin Lispro 100 UNIT/ML 3 ML VIAL SUBCUT ×4 (08:58→21:08)
[2021-05-05] MEDS: dexAMETHasone sod phosphate 4 MG/ML VIAL 6 MG IVPUSH (08:58)
[2021-05-05 09:11] LABS: Hematocrit 40.9 % (42.0-52.0); Hemoglobin 13.9 g/dl (14.0-18.0); Mean Corpuscular Hemoglobin 29.8 pg (27.0-33.0); Mean Corpuscular Volume 87.6 fL (80.0-98.0); Mean Platelet Volume 10.8 fL (9.4-12.4); Platelet Count 241 X10*3/uL (160-400); Red Blood Count 4.67 X10*6/uL (4.60-5.80); Red Cell Distribution Width 13.4 % (11.0-16.0); White Blood Count 13.7 X10*3/uL (4.8-10.8)
[2021-05-05 11:39] LABS: Glucose, Whole Blood 194 mg/dL (60-115)
--- NOTE | 2021-05-05 13:04 | HO.PM.IMPN ---
Subjective Subjective Date of Service: 05/05/21 Interval History: Being followed for hypoxic respiratory failure, denies shortness of breath, no worsening cough, no fevers, on high-flow oxygen finger oximetry 95% Review of Systems Review of Systems: Yes all other systems are reviewed and are negative Physical Exam Vital Signs: Vital Signs: Last Vital Signs Temp 98.1 F 05/05/21 11:21 Pulse 84 05/05/21 11:21 Resp 18 05/05/21 12:00 BP 122/70 05/05/21 11:21 Pulse Ox 98 05/05/21 11:21 BMI result Body Mass Index 34.7 Gen: no respiratory distress Neck: supple,no jvd Lungs: clear to auscultation bilaterally, diminished breath sounds Heart: RRR, no murmurs Abd: soft, non-tender, non-distended, obese Ext: no edema Skin: warm/well-perfused Neuro: alert and oriented x3, no focal findings Psych: appropriate affect ? Objective Data Active Medications Acetaminophen (Acetaminophen 325 Mg Tablet) 650 mg PO Q6H PRN PRN Reason: Pain, Mild (Pain Scale 1-3) Atorvastatin Calcium (Atorvastatin Calcium 20 Mg Tablet) 20 mg PO BEDTIME [facility] Last Admin: 05/04/21 20:50 Dose: 20 mg Documented by: ROMARIO Benzonatate (Benzonatate 100 Mg Capsule) 100 mg PO TID PRN PRN Reason: cough Dexamethasone Sodium Phosphate (Dexamethasone Sod Phosphate 4 Mg/Ml Vial) 6 mg IVPUSH DAILY [facility] Stop: 05/12/21 09:01 Last Admin: 05/05/21 08:58 Dose: 6 mg Documented by: ALEE Dextrose (Dextrose 50 % 25 Gm/50 Ml Vial) 25 gm IVPUSH Q15M PRN; Protocol PRN Reason: per Hypoglycemia Standing Ord. Enoxaparin Sodium (Enoxaparin Sodium 40 Mg/0.4 Ml Syringe) 40 mg SUBCUT Q24H [facility] Last Admin: 05/04/21 14:46 Dose: 40 mg Documented by: JOSH Glucose (Glucose Gel 15 Gm Gel..Gram.) 15 gm PO Q15M PRN; Protocol PRN Reason: per Hypoglycemia Standing Ord. Insulin Glargine (Insulin Glargine,Hum.Rec.Anlog 100 Unit/Ml 10 Ml Vial) 8 unit SUBCUT BEDTIME [facility] Last Admin: 05/04/21 20:49 Dose: 8 unit Documented by: ROMARIO Insulin Human Lispro (Insulin Lispro 100 Unit/Ml 3 Ml Vial) 0 unit SUBCUT QIDACHS [facility]; Protocol Last Admin: 05/05/21 12:36 Dose: 4 unit Documented by: ALEE Non-Formulary Medication (Dapagliflozin [Farxiga]) 1 tab PO DAILY [facility] Ondansetron HCl (Ondansetron Hcl 4 Mg/2 Ml Vial) 4 mg IVPUSH Q8H PRN PRN Reason: Nausea and Vomiting Pharmacy Consult (Consult Rx Perform Med Rec) 1 each MISCELLANE ONCE PRN PRN Reason: Consult order Pioglitazone HCl (Pioglitazone Hcl 45 Mg Tablet) 45 mg PO DAILY [facility] Last Admin: 05/05/21 08:58 Dose: 45 mg Documented by: ALEE Sodium Chloride (0.9 % Sodium Chloride Flush 3 Ml Syringe) 3 ml IVFLUSH QSHIFT [facility] Last Admin: 05/05/21 08:58 Dose: 3 ml Documented by: ALEE Labs CBC & Chem 7: 05/05/21 06:09 05/05/21 06:09 Labs: Laboratory Results - last 24 hr 05/04/21 05/04/21 05/05/21 17:33 20:39 06:09 MCV 87.6 MCH 29.8 MCHC 34.0 RDW 13.4 Plt Count 241 MPV 10.8 Absolute Nucleated RBC 0.000 Nucleated RBC % (auto) 0.0 D-Dimer High Sensitivty Anion Gap Estim Creat Clear Calc Estimated GFR POC Glucose 356 H* 293 H Random Glucose Calcium C-Reactive Protein 05/05/21 05/05/21 05/05/21 06:09 06:09 07:49 MCV MCH MCHC RDW Plt Count MPV Absolute Nucleated RBC Nucleated RBC % (auto) D-Dimer High Sensitivty 727 Anion Gap 15 Estim Creat Clear Calc 99.8 Estimated GFR > 60 POC Glucose 188 H Random Glucose 144 H Calcium 9.0 C-Reactive Protein 0.69 H 05/05/21 11:21 MCV MCH MCHC RDW Plt Count MPV Absolute Nucleated RBC Nucleated RBC % (auto) D-Dimer High Sensitivty Anion Gap Estim Creat Clear Calc Estimated GFR POC Glucose 194 H Random Glucose Calcium C-Reactive Protein Microbiology Microbiology Results: Microbiology 05/03/21 10:56 Blood Culture - Preliminary Blood - Venous No growth after 48 hours. 05/03/21 09:42 Blood Culture - Preliminary Blood - Venous No growth after 48 hours. Assessment and Plan (1) COVID-19: Status: Acute (2) Acute respiratory failure with hypoxia: Status: Acute Assessment and Plan: 60yo M with DM2 and obesity presenting with hypoxia on d#12 of illness with Covid-19 infection # severe Covid-19 pneumonia - dexamethasone d#07/24.? inflammatory markers relatively low , stable oxygen requirements since yesterday Await ID input in regard to use of bericitinib Called patient Sania Mathur [phone] and updated her regarding patient's current condition # acute hypoxic respiratory failure - HFNC, wean as tolerated, encourage awake proning, recommend frequent position change # DM2 with steroid-induced hyperglycemia - elevated blood sugars likely due to steroid, A1c 7.9 - continue basal insulin and increase correction-dose bolus insulin, metformin and glipizide on hold # dyslipidemia - continue atorvastatin # VTE ppx - LMWH Quality Stroke Does the patient have a stroke diagnosis?: No VTE Prior VTE?: No VTE Risk Level:: Medical - moderate - high VTE Device Contraindication: N/A - Device Ordered VTE Drug Contraindication: N/A - Med Ordered
--- NOTE | 2021-05-05 13:45 | W.PM.IDCN ---
History of Present Illness Data of Consult Service Date: 04/28/21 Requesting physician: Rocío Cline Primary Care Provider: DO DEL Vasquez Reason for consult: COVID He presents to hospital with shortness of breath and hypoxia to 77%, He has had symptoms of cough since 04/21 and is now day 14. He has no nausea or vomiting. He has diabetes He is unvaccinated Review of Systems Review of Systems: Yes all other systems are reviewed and are negative PMFSH Past Medical History Medical History Diabetes Dyslipidemia TBI (traumatic brain injury) Functional capacity: independent ambulation Family History Family history: reviewed and not pertinent Surgical History Surgical History History of appendectomy Social History Social History Household Members: Spouse Housing: House Patient Tobacco Use Status: Former Tobacco user Use of substances other than those prescribed or required for medical reasons: No Currently Displaying Signs/Symptoms of Drug Intoxication Withdrawal: No Have you been hit, kicked, punched, or otherwise hurt by someone within the past year? If so, by whom?: No Do you feel safe in your current relationship?: Yes Is there a partner from a previous relationship who is making you feel unsafe now?: No Are you made to feel afraid or neglected: No Advance Directives: Yes Advance Directives Information Provided: No Advance Directives on File: Yes Advance Directives Date on File: 05/05/21 Do you have thoughts of harming others: None Do you have a plan to hurt others: No Plan Recently lost weight without trying: No Nutrition Risks: No Nutritional Risk service: Yes Current occupational status: employed Meds Allergies Allergy/AdvReac Type Severity Reaction Status Date / Time No Known Allergies Allergy Verified 04/30/21 09:18 Active Medications: Current Medications Acetaminophen (Acetaminophen 325 Mg Tablet) 650 mg PO Q6H PRN PRN Reason: Pain, Mild (Pain Scale 1-3) Atorvastatin Calcium (Atorvastatin Calcium 20 Mg Tablet) 20 mg PO BEDTIME [facility] Last Admin: 05/04/21 20:50 Dose: 20 mg Documented by: Baricitinib (Baricitinib 2 Mg Tablet) 4 mg PO Q24H [facility] Stop: 05/18/21 14:01 Benzonatate (Benzonatate 100 Mg Capsule) 100 mg PO TID PRN PRN Reason: cough Dexamethasone Sodium Phosphate (Dexamethasone Sod Phosphate 4 Mg/Ml Vial) 6 mg IVPUSH DAILY [facility] Stop: 05/12/21 09:01 Last Admin: 05/05/21 08:58 Dose: 6 mg Documented by: Dextrose (Dextrose 50 % 25 Gm/50 Ml Vial) 25 gm IVPUSH Q15M PRN; Protocol PRN Reason: per Hypoglycemia Standing Ord. Enoxaparin Sodium (Enoxaparin Sodium 40 Mg/0.4 Ml Syringe) 40 mg SUBCUT Q24H [facility] Last Admin: 05/04/21 14:46 Dose: 40 mg Documented by: Glucose (Glucose Gel 15 Gm Gel..Gram.) 15 gm PO Q15M PRN; Protocol PRN Reason: per Hypoglycemia Standing Ord. Insulin Glargine (Insulin Glargine,Hum.Rec.Anlog 100 Unit/Ml 10 Ml Vial) 8 unit SUBCUT BEDTIME [facility] Last Admin: 05/04/21 20:49 Dose: 8 unit Documented by: Insulin Human Lispro (Insulin Lispro 100 Unit/Ml 3 Ml Vial) 0 unit SUBCUT QIDACHS [facility]; Protocol Last Admin: 05/05/21 12:36 Dose: 4 unit Documented by: Non-Formulary Medication (Dapagliflozin [Farxiga]) 1 tab PO DAILY [facility] Ondansetron HCl (Ondansetron Hcl 4 Mg/2 Ml Vial) 4 mg IVPUSH Q8H PRN PRN Reason: Nausea and Vomiting Pharmacy Consult (Consult Rx Perform Med Rec) 1 each MISCELLANE ONCE PRN PRN Reason: Consult order Pioglitazone HCl (Pioglitazone Hcl 45 Mg Tablet) 45 mg PO DAILY [facility] Last Admin: 05/05/21 08:58 Dose: 45 mg Documented by: Sodium Chloride (0.9 % Sodium Chloride Flush 3 Ml Syringe) [facility] Last Admin: 05/05/21 08:58 Dose: 3 ml Documented by: Home Medications Medication Instructions Recorded Confirmed Last Taken Type atorvastatin 20 mg tablet 1 tab PO BEDTIME 05/03/21 05/03/21 05/02/21 History dapagliflozin 10 mg tablet 1 tab PO DAILY 05/03/21 05/03/21 05/03/21 History (Farxiga) glipizide 10 mg tablet 1 tab PO BID 05/03/21 05/03/21 05/03/21 History insulin glargine U-300 conc 300 10 unit SUBCUT BEDTIME 05/03/21 05/03/21 05/02/21 History unit/mL (1.5 mL) subcutaneous pen (Toujeo SoloStar U-300 Insulin) metformin 500 mg tablet,extended 2 tab PO BID 05/03/21 05/03/21 05/03/21 History release 24 hr pioglitazone 45 mg tablet 1 tab PO DAILY 05/03/21 05/03/21 05/03/21 History Physical Exam Vital Signs: Vital Signs: Last Vital Signs Temp 98.1 F 05/05/21 11:21 Pulse 84 05/05/21 11:21 Resp 18 05/05/21 12:00 BP 122/70 05/05/21 11:21 Pulse Ox 98 05/05/21 11:21 BMI result Body Mass Index 34.7 Const: General: cooperative Eyes: General: appearance normal, both eyes and all related structures Pupils: Equal, round and reactive pupils present Resp: Effort & Inspection: Actively coughing Cardio: Rate: regular rate Rhythm: regular rhythm GI: Palpation (GI): Soft to palpation and nontender Skin: General skin exam: no rashes or lesions noted Neuro: Cranial nerves: Yes Equal, round and reactive pupils present Results Labs CBC & Chem 7: 05/05/21 06:09 05/05/21 06:09 Labs: Short CBC 05/05/21 Range/Units 06:09 WBC 13.7 H (4.8-10.8) X10*3/uL Hgb 13.9 L (14.0-18.0) g/dl Hct 40.9 L (42.0-52.0) % Plt Count 241 (160-400) X10*3/uL BMP 05/05/21 06:09 Sodium 137 Potassium 4.7 Chloride 101 Carbon Dioxide 26 BUN 22 H Creatinine 0.97 Calcium 9.0 Microbiology Microbiology Results: Microbiology 05/03/21 10:56 Blood - Venous Blood Culture - Preliminary No growth after 48 hours. 05/03/21 09:42 Blood - Venous Blood Culture - Preliminary No growth after 48 hours. Assessment and Plan (1) COVID-19: Status: Acute He has COVID and worsening hypoxia with increasing flow requirements to high flow He is fourteen days (2) Acute respiratory failure with hypoxia: Status: Acute May still use Dexamethasone for ten days Baricitinib as worsening respiratory status (may check with Pulmonary also) Oxygen as needed
[2021-05-05] MEDS: Enoxaparin Sodium 40 MG/0.4 ML SYRINGE SUBCUT (14:31)
[2021-05-05 16:48] LABS: Glucose, Whole Blood 240 mg/dL (60-115)
[2021-05-05 20:26] LABS: Glucose, Whole Blood 278 mg/dL (60-115)
[2021-05-05] MEDS: Atorvastatin Calcium 20 MG TABLET PO (21:07)
[2021-05-05] MEDS: Insulin Glargine,Hum.rec.anlog 100 UNIT/ML 10 ML VIAL 8 UNIT SUBCUT (21:07)
[2021-05-06] VITALS (11 sets, daily range): BP systolic 108–138; BP diastolic 68–82; PULSE 57–101; RESP 18–20; TEMP 36.1–36.9; O2SAT 91–100
--- NOTE | 2021-05-06 00:30 | PC.NURSE ---
Addendum entered by Aurora Martinez RN 05/06/21 05:44: pt desating again to low 80's after dangling feet on edge of bed, sats not correcting when placed back in bed, Rt to bedside pt placed on 100% non rebreather and HFNC increased to 100% at 50L. with improvement. when pts sats stabilized non rebreather removed and pt now sating 97% on HFNC. will use non rebreather as needed Original Note: pt desating to 80% on HFNC on tele this rn to bedside pt on sitting on edge of bed using urinal, pt help back to semi fowlers position, encouraged to take deep breaths and cough without any effect, RT to bedside pts HFNC increased to 90% and 50L. sats up to 90%.
[2021-05-06 09:29] LABS: Glucose, Whole Blood 331 mg/dL (60-115)
[2021-05-06] MEDS: Insulin Lispro 100 UNIT/ML 3 ML VIAL SUBCUT ×4 (09:38→20:42)
[2021-05-06] MEDS: 0.9 % Sodium Chloride Flush 3 ML SYRINGE IVFLUSH ×3 (09:39→20:42)
[2021-05-06] MEDS: dexAMETHasone sod phosphate 4 MG/ML VIAL 6 MG IVPUSH (09:39)
[2021-05-06] MEDS: Pioglitazone HCL 45 MG TABLET PO (09:39)
[2021-05-06] MEDS: Benzonatate 100 MG CAPSULE PO ×2 (09:39→20:42)
[2021-05-06 11:56] LABS: Glucose, Whole Blood 238 mg/dL (60-115)
--- NOTE | 2021-05-06 13:25 | HO.PM.IMPN ---
Subjective Subjective Date of Service: 05/06/21 Interval History: Feels better, overnight noted to be hypoxic required non-rebreather mask, this morning on high-flow oxygen denies chest pain, no shortness of breath, no overnight fever chills. Review of Systems Review of Systems: Yes all other systems are reviewed and are negative Physical Exam Vital Signs: Vital Signs: Last Vital Signs Temp 97.3 F 05/06/21 12:00 Pulse 87 05/06/21 12:00 Resp 20 05/06/21 12:00 BP 129/78 05/06/21 12:00 Pulse Ox 91 L 05/06/21 12:00 BMI result Body Mass Index 34.7 Gen: no respiratory distress Neck: supple,no jvd Lungs: clear to auscultation bilaterally, diminished breath sounds Heart: RRR, no murmurs Abd: soft, non-tender, non-distended, obese Ext: no edema Skin: warm/well-perfused Neuro: alert and oriented x3, no focal findings Psych: appropriate affect ? Objective Data Active Medications Acetaminophen (Acetaminophen 325 Mg Tablet) 650 mg PO Q6H PRN PRN Reason: Pain, Mild (Pain Scale 1-3) Atorvastatin Calcium (Atorvastatin Calcium 20 Mg Tablet) 20 mg PO BEDTIME [facility] Last Admin: 05/05/21 21:07 Dose: 20 mg Documented by: ONOFRE Baricitinib (Baricitinib 2 Mg Tablet) 4 mg PO Q24H [facility] Stop: 05/18/21 14:01 Last Admin: 05/05/21 14:30 Dose: 4 mg Documented by: ALEE Benzonatate (Benzonatate 100 Mg Capsule) 100 mg PO TID PRN PRN Reason: cough Last Admin: 05/06/21 09:39 Dose: 100 mg Documented by: ALEE Dexamethasone Sodium Phosphate (Dexamethasone Sod Phosphate 4 Mg/Ml Vial) 6 mg IVPUSH DAILY [facility] Stop: 05/12/21 09:01 Last Admin: 05/06/21 09:39 Dose: 6 mg Documented by: ALEE Dextrose (Dextrose 50 % 25 Gm/50 Ml Vial) 25 gm IVPUSH Q15M PRN; Protocol PRN Reason: per Hypoglycemia Standing Ord. Enoxaparin Sodium (Enoxaparin Sodium 40 Mg/0.4 Ml Syringe) 40 mg SUBCUT Q24H [facility] Last Admin: 05/05/21 14:31 Dose: 40 mg Documented by: ALEE Glucose (Glucose Gel 15 Gm Gel..Gram.) 15 gm PO Q15M PRN; Protocol PRN Reason: per Hypoglycemia Standing Ord. Insulin Glargine (Insulin Glargine,Hum.Rec.Anlog 100 Unit/Ml 10 Ml Vial) 8 unit SUBCUT BEDTIME [facility] Last Admin: 05/05/21 21:07 Dose: 8 unit Documented by: ONOFRE Insulin Human Lispro (Insulin Lispro 100 Unit/Ml 3 Ml Vial) 0 unit SUBCUT QIDACHS [facility]; Protocol Last Admin: 05/06/21 12:09 Dose: 6 unit Documented by: ALEE Non-Formulary Medication (Dapagliflozin [Farxiga]) 1 tab PO DAILY [facility] Ondansetron HCl (Ondansetron Hcl 4 Mg/2 Ml Vial) 4 mg IVPUSH Q8H PRN PRN Reason: Nausea and Vomiting Pharmacy Consult (Consult Rx Perform Med Rec) 1 each MISCELLANE ONCE PRN PRN Reason: Consult order Pioglitazone HCl (Pioglitazone Hcl 45 Mg Tablet) 45 mg PO DAILY [facility] Last Admin: 05/06/21 09:39 Dose: 45 mg Documented by: ALEE Sodium Chloride (0.9 % Sodium Chloride Flush 3 Ml Syringe) 3 ml IVFLUSH QSHIFT [facility] Last Admin: 05/06/21 09:39 Dose: 3 ml Documented by: ALEE Labs CBC & Chem 7: 05/05/21 06:09 05/05/21 06:09 Labs: Laboratory Results - last 24 hr 05/05/21 05/05/21 05/06/21 15:56 20:10 09:21 POC Glucose 240 H 278 H 331 H 05/06/21 11:46 POC Glucose 238 H Microbiology Microbiology Results: Microbiology 05/03/21 10:56 Blood Culture - Preliminary Blood - Venous No growth after 48 hours. 05/03/21 09:42 Blood Culture - Preliminary Blood - Venous No growth after 48 hours. Assessment and Plan (1) COVID-19: Status: Acute (2) Acute respiratory failure with hypoxia: Status: Acute Assessment and Plan: 60yo M with DM2 and obesity presenting with hypoxia on d#12 of illness with Covid-19 infection # severe Covid-19 pneumonia - on dexamethasone d#4/10.? inflammatory markers relatively low , stable oxygen requirements ? started on bericitinib 4mg day 06/30 ? updated patient Sania Mathur [phone] about patient's current condition ? # acute hypoxic respiratory failure - HFNC, wean as tolerated, encourage awake proning, recommend frequent position change # DM2 with steroid-induced hyperglycemia - elevated blood sugars likely due to steroid, A1c 7.9 - continue basal insulin ,correction-dose bolus insulin dose adjusted, metformin and glipizide on hold, family will bring Manan # dyslipidemia - continue atorvastatin # VTE ppx - LMWH Quality Stroke Does the patient have a stroke diagnosis?: No VTE Prior VTE?: No VTE Risk Level:: Medical - moderate - high VTE Device Contraindication: N/A - Device Ordered VTE Drug Contraindication: N/A - Med Ordered
[2021-05-06] MEDS: Enoxaparin Sodium 40 MG/0.4 ML SYRINGE SUBCUT (14:18)
[2021-05-06 16:24] LABS: Glucose, Whole Blood 229 mg/dL (60-115)
[2021-05-06 20:25] LABS: Glucose, Whole Blood 255 mg/dL (60-115)
[2021-05-06] MEDS: Atorvastatin Calcium 20 MG TABLET PO (20:40)
[2021-05-06] MEDS: Insulin Glargine,Hum.rec.anlog 100 UNIT/ML 10 ML VIAL 8 UNIT SUBCUT (20:42)
[2021-05-07] VITALS (11 sets, daily range): BP systolic 104–126; BP diastolic 63–88; PULSE 61–81; RESP 16–22; TEMP 36–37; O2SAT 94–99
[2021-05-07 07:24] LABS: Glucose, Whole Blood 188 mg/dL (60-115)
[2021-05-07] MEDS: Insulin Lispro 100 UNIT/ML 3 ML VIAL SUBCUT ×4 (08:35→20:19)
[2021-05-07] MEDS: Pioglitazone HCL 45 MG TABLET PO (08:35)
[2021-05-07] MEDS: 0.9 % Sodium Chloride Flush 3 ML SYRINGE IVFLUSH ×3 (08:35→20:20)
[2021-05-07] MEDS: dexAMETHasone sod phosphate 4 MG/ML VIAL 6 MG IVPUSH (08:35)
[2021-05-07 11:35] LABS: Glucose, Whole Blood 223 mg/dL (60-115)
--- NOTE | 2021-05-07 11:35 | MHC.CM.PN ---
Per ROUNDS discussion, Patient is not yet medically cleared for dc (high Flow O2). Home is the goal for dc and CM will follow for possible need to adjust the dc plan.
[2021-05-07] MEDS: Benzonatate 100 MG CAPSULE PO ×2 (11:45→20:18)
[2021-05-07] MEDS: Enoxaparin Sodium 40 MG/0.4 ML SYRINGE SUBCUT (13:38)
[2021-05-07 16:09] LABS: Glucose, Whole Blood 302 mg/dL (60-115)
--- NOTE | 2021-05-07 16:27 | HO.PM.IMPN ---
Subjective Subjective Date of Service: 05/07/21 Interval History: Feels better this morning, on high-flow oxygen, did have drop in oxygenation with eating and with sleep . Review of Systems Review of Systems: Yes all other systems are reviewed and are negative Physical Exam Vital Signs: Vital Signs: Last Vital Signs Temp 98 F 05/07/21 15:26 Pulse 68 05/07/21 15:26 Resp 16 05/07/21 15:26 BP 110/70 05/07/21 15:26 Pulse Ox 99 05/07/21 15:26 BMI result Body Mass Index 34.7 Gen: no respiratory distress Neck: supple,no jvd Lungs: clear to auscultation bilaterally, diminished breath sounds at bases Heart: RRR, no murmurs Abd: soft, non-tender, non-distended, obese Ext: no edema Skin: warm/well-perfused Neuro: alert and oriented x3, no focal findings Psych: appropriate affect ? Objective Data Active Medications Acetaminophen (Acetaminophen 325 Mg Tablet) 650 mg PO Q6H PRN PRN Reason: Pain, Mild (Pain Scale 1-3) Atorvastatin Calcium (Atorvastatin Calcium 20 Mg Tablet) 20 mg PO BEDTIME [facility] Last Admin: 05/06/21 20:40 Dose: 20 mg Documented by: REDD Baricitinib (Baricitinib 2 Mg Tablet) 4 mg PO Q24H [facility] Stop: 05/18/21 14:01 Last Admin: 05/07/21 13:38 Dose: 4 mg Documented by: XAVI Benzonatate (Benzonatate 100 Mg Capsule) 100 mg PO TID PRN PRN Reason: cough Last Admin: 05/07/21 11:45 Dose: 100 mg Documented by: XAVI Dexamethasone Sodium Phosphate (Dexamethasone Sod Phosphate 4 Mg/Ml Vial) 6 mg IVPUSH DAILY [facility] Stop: 05/12/21 09:01 Last Admin: 05/07/21 08:35 Dose: 6 mg Documented by: XAVI Dextrose (Dextrose 50 % 25 Gm/50 Ml Vial) 25 gm IVPUSH Q15M PRN; Protocol PRN Reason: per Hypoglycemia Standing Ord. Enoxaparin Sodium (Enoxaparin Sodium 40 Mg/0.4 Ml Syringe) 40 mg SUBCUT Q24H [facility] Last Admin: 05/07/21 13:38 Dose: 40 mg Documented by: XAVI Glucose (Glucose Gel 15 Gm Gel..Gram.) 15 gm PO Q15M PRN; Protocol PRN Reason: per Hypoglycemia Standing Ord. Insulin Glargine (Insulin Glargine,Hum.Rec.Anlog 100 Unit/Ml 10 Ml Vial) 8 unit SUBCUT BEDTIME [facility] Last Admin: 05/06/21 20:42 Dose: 8 unit Documented by: REDD Insulin Human Lispro (Insulin Lispro 100 Unit/Ml 3 Ml Vial) 0 unit SUBCUT QIDACHS [facility]; Protocol Last Admin: 05/07/21 11:42 Dose: 8 unit Documented by: XAVI Patient Own Medication ( Dapagliflozin [ Farxiga] 10 Mg Tablet) 1 each PO DAILY [facility] Last Admin: 05/07/21 08:36 Dose: 1 each Documented by: XAVI Ondansetron HCl (Ondansetron Hcl 4 Mg/2 Ml Vial) 4 mg IVPUSH Q8H PRN PRN Reason: Nausea and Vomiting Pharmacy Consult (Consult Rx Perform Med Rec) 1 each MISCELLANE ONCE PRN PRN Reason: Consult order Pioglitazone HCl (Pioglitazone Hcl 45 Mg Tablet) 45 mg PO DAILY [facility] Last Admin: 05/07/21 08:35 Dose: 45 mg Documented by: XAVI Sodium Chloride (0.9 % Sodium Chloride Flush 3 Ml Syringe) 3 ml IVFLUSH QSHIFT [facility] Last Admin: 05/07/21 13:38 Dose: 3 ml Documented by: XAVI Labs CBC & Chem 7: 05/05/21 06:09 05/05/21 06:09 Labs: Laboratory Results - last 24 hr 05/06/21 05/07/21 05/07/21 20:18 07:02 11:10 POC Glucose 255 H 188 H 223 H 05/07/21 15:55 POC Glucose 302 H Assessment and Plan (1) COVID-19: Status: Acute (2) Acute respiratory failure with hypoxia: Status: Acute Assessment and Plan: 60yo M with DM2 and obesity presenting with hypoxia on d#12 of illness with Covid-19 infection # severe Covid-19 pneumonia - on dexamethasone d#5/10.? inflammatory markers relatively low , stable oxygen requirements ? started on bericitinib 4mg day 07/28 ? Making slow progress, reassured patient # acute hypoxic respiratory failure - HFNC, wean as tolerated, encourage awake proning, recommend frequent position change # DM2 with steroid-induced hyperglycemia - elevated blood sugars likely due to steroid, A1c 7.9 - continue basal insulin ,correction-dose bolus insulin dose adjusted, metformin and glipizide on hold, cont. Farxiga # dyslipidemia - continue atorvastatin # VTE ppx - LMWH Quality Stroke Does the patient have a stroke diagnosis?: No VTE Prior VTE?: No VTE Risk Level:: Medical - moderate - high VTE Device Contraindication: N/A - Device Ordered VTE Drug Contraindication: N/A - Med Ordered
[2021-05-07 20:17] LABS: Glucose, Whole Blood 312 mg/dL (60-115)
[2021-05-07] MEDS: Insulin Glargine,Hum.rec.anlog 100 UNIT/ML 10 ML VIAL 8 UNIT SUBCUT (20:18)
[2021-05-07] MEDS: Atorvastatin Calcium 20 MG TABLET PO (20:18)
[2021-05-08] VITALS (10 sets, daily range): BP systolic 114–125; BP diastolic 59–79; PULSE 60–85; RESP 16–21; TEMP 36.1–36.9; O2SAT 93–99
[2021-05-08 07:32] LABS: Glucose, Whole Blood 186 mg/dL (60-115)
[2021-05-08] MEDS: Insulin Lispro 100 UNIT/ML 3 ML VIAL SUBCUT ×4 (07:40→21:45)
[2021-05-08] MEDS: Pioglitazone HCL 45 MG TABLET PO (10:02)
[2021-05-08] MEDS: dexAMETHasone sod phosphate 4 MG/ML VIAL 6 MG IVPUSH (10:02)
[2021-05-08] MEDS: 0.9 % Sodium Chloride Flush 3 ML SYRINGE IVFLUSH ×3 (10:03→21:46)
--- NOTE | 2021-05-08 10:33 | HO.PM.IMPN ---
Subjective Subjective Date of Service: 05/08/21 Interval History: Feeling significantly better denies shortness of breath, no chest pain, no overnight fever chills, oxygenation stable, 99% on high flow. Review of Systems Gen: no respiratory distress Neck: supple,no jvd Lungs: clear to auscultation bilaterally, talking in full sentences Heart: RRR, no murmurs Abd: soft, non-tender, non-distended, obese Ext: no edema Skin: warm/well-perfused Neuro: alert and oriented x3, no focal findings Psych: appropriate affect ? Physical Exam Vital Signs: Vital Signs: Last Vital Signs Temp 98.5 F 05/08/21 07:15 Pulse 60 05/08/21 07:15 Resp 18 05/08/21 08:09 BP 115/66 05/08/21 07:15 Pulse Ox 99 05/08/21 07:15 BMI result Body Mass Index 34.7 Objective Data Active Medications Acetaminophen (Acetaminophen 325 Mg Tablet) 650 mg PO Q6H PRN PRN Reason: Pain, Mild (Pain Scale 1-3) Atorvastatin Calcium (Atorvastatin Calcium 20 Mg Tablet) 20 mg PO BEDTIME [facility] Last Admin: 05/07/21 20:18 Dose: 20 mg Documented by: SHANON Baricitinib (Baricitinib 2 Mg Tablet) 4 mg PO Q24H [facility] Stop: 05/18/21 14:01 Last Admin: 05/07/21 13:38 Dose: 4 mg Documented by: XAVI Benzonatate (Benzonatate 100 Mg Capsule) 100 mg PO TID PRN PRN Reason: cough Last Admin: 05/07/21 20:18 Dose: 100 mg Documented by: SHANON Dexamethasone Sodium Phosphate (Dexamethasone Sod Phosphate 4 Mg/Ml Vial) 6 mg IVPUSH DAILY [facility] Stop: 05/12/21 09:01 Last Admin: 05/08/21 10:02 Dose: 6 mg Documented by: CATRINA Dextrose (Dextrose 50 % 25 Gm/50 Ml Vial) 25 gm IVPUSH Q15M PRN; Protocol PRN Reason: per Hypoglycemia Standing Ord. Enoxaparin Sodium (Enoxaparin Sodium 40 Mg/0.4 Ml Syringe) 40 mg SUBCUT Q24H [facility] Last Admin: 05/07/21 13:38 Dose: 40 mg Documented by: HO.LARHO Glucose (Glucose Gel 15 Gm Gel..Gram.) 15 gm PO Q15M PRN; Protocol PRN Reason: per Hypoglycemia Standing Ord. Insulin Glargine (Insulin Glargine,Hum.Rec.Anlog 100 Unit/Ml 10 Ml Vial) 8 unit SUBCUT BEDTIME [facility] Last Admin: 05/07/21 20:18 Dose: 8 unit Documented by: SHANON Insulin Human Lispro (Insulin Lispro 100 Unit/Ml 3 Ml Vial) 0 unit SUBCUT QIDACHS [facility]; Protocol Last Admin: 05/08/21 07:40 Dose: 6 unit Documented by: CATRINA Patient Own Medication ( Dapagliflozin [ Farxiga] 10 Mg Tablet) 1 each PO DAILY [facility] Last Admin: 05/08/21 10:04 Dose: 1 each Documented by: CATRINA Ondansetron HCl (Ondansetron Hcl 4 Mg/2 Ml Vial) 4 mg IVPUSH Q8H PRN PRN Reason: Nausea and Vomiting Pharmacy Consult (Consult Rx Perform Med Rec) 1 each MISCELLANE ONCE PRN PRN Reason: Consult order Pioglitazone HCl (Pioglitazone Hcl 45 Mg Tablet) 45 mg PO DAILY [facility] Last Admin: 05/08/21 10:02 Dose: 45 mg Documented by: CATRINA Sodium Chloride (0.9 % Sodium Chloride Flush 3 Ml Syringe) 3 ml IVFLUSH QSHIFT [facility] Last Admin: 05/08/21 10:03 Dose: 3 ml Documented by: CATRINA Labs CBC & Chem 7: 05/05/21 06:09 05/05/21 06:09 Labs: Laboratory Results - last 24 hr 05/07/21 05/07/21 05/07/21 11:10 15:55 20:11 POC Glucose 223 H 302 H 312 H 05/08/21 07:18 POC Glucose 186 H Assessment and Plan (1) COVID-19: Status: Acute (2) Acute respiratory failure with hypoxia: Status: Acute Assessment and Plan: 60yo M with DM2 and obesity presenting with hypoxia on d#12 of illness with Covid-19 infection # acute hypoxic respiratory failure due to severe Covid-19 pneumonia - on dexamethasone d#6/.? inflammatory markers relatively low ,on bericitinib 4mg day 08/28 ? On HFNC, oxygenation stable in last 24 hours, with wean as tolerated, encourage awake proning, recommend frequent position change and ambulation as tolerated Will add Pepcid for GI prophylaxis, continue supportive care with cough medication CRP 0.69 # DM2 with steroid-induced hyperglycemia - elevated blood sugars likely due to steroid, A1c 7.9 - continue basal insulin ,correction-dose bolus insulin dose adjusted, will resume glipizide, continue Farxiga, continue to hold metformin # dyslipidemia - continue atorvastatin # VTE ppx - LMWH Quality Stroke Does the patient have a stroke diagnosis?: No VTE Prior VTE?: No VTE Risk Level:: Medical - moderate - high VTE Device Contraindication: N/A - Device Ordered VTE Drug Contraindication: N/A - Med Ordered
[2021-05-08 11:21] LABS: Glucose, Whole Blood 333 mg/dL (60-115)
[2021-05-08] MEDS: glipiZIDE XL 10 MG TAB.ER.24 PO (12:07)
[2021-05-08] MEDS: Famotidine 20 MG TABLET PO ×2 (12:07→21:45)
[2021-05-08] MEDS: Enoxaparin Sodium 40 MG/0.4 ML SYRINGE SUBCUT (15:42)
[2021-05-08] MEDS: Benzonatate 100 MG CAPSULE PO ×2 (15:42→21:45)
[2021-05-08 16:05] LABS: Glucose, Whole Blood 259 mg/dL (60-115)
[2021-05-08 19:48] LABS: Glucose, Whole Blood 311 mg/dL (60-115)
[2021-05-08] MEDS: Insulin Glargine,Hum.rec.anlog 100 UNIT/ML 10 ML VIAL 8 UNIT SUBCUT (21:45)
[2021-05-08] MEDS: Atorvastatin Calcium 20 MG TABLET PO (21:45)
[2021-05-09] VITALS (7 sets, daily range): BP systolic 108–143; BP diastolic 63–90; PULSE 50–84; RESP 18–20; TEMP 36.3–37; O2SAT 93–98
[2021-05-09 07:41] LABS: Glucose, Whole Blood 193 mg/dL (60-115)
[2021-05-09] MEDS: glipiZIDE XL 10 MG TAB.ER.24 PO (08:10)
[2021-05-09] MEDS: Benzonatate 100 MG CAPSULE PO ×3 (08:10→20:14)
[2021-05-09] MEDS: Pioglitazone HCL 45 MG TABLET PO (08:10)
[2021-05-09] MEDS: Famotidine 20 MG TABLET PO ×2 (08:10→20:14)
[2021-05-09] MEDS: Insulin Lispro 100 UNIT/ML 3 ML VIAL SUBCUT ×5 (08:10→21:22)
[2021-05-09] MEDS: dexAMETHasone sod phosphate 4 MG/ML VIAL 6 MG IVPUSH (08:10)
[2021-05-09] MEDS: 0.9 % Sodium Chloride Flush 3 ML SYRINGE IVFLUSH ×3 (08:11→20:16)
[2021-05-09 11:25] LABS: Glucose, Whole Blood 274 mg/dL (60-115)
--- NOTE | 2021-05-09 13:36 | HO.PM.IMPN ---
Subjective Subjective Date of Service: 05/09/21 Interval History: Feeling better offers no acute complaints oxygen requirement significantly improved now down to 10 L nasal cannula, noted to have elevated blood sugars 311 Review of Systems Review of Systems: Yes all other systems are reviewed and are negative Physical Exam Vital Signs: Vital Signs: Last Vital Signs Temp 97.5 F 05/09/21 11:11 Pulse 78 05/09/21 11:11 Resp 18 05/09/21 11:11 BP 114/69 05/09/21 11:11 Pulse Ox 98 05/09/21 11:11 BMI result Body Mass Index 34.7 Gen: no respiratory distress, awake alert x3 Neck: supple,no jvd Lungs: clear to auscultation bilaterally, no rhonchi Heart: RRR, no murmurs Abd: soft, non-tender, non-distended, obese Ext: no edema Skin: warm/well-perfused Neuro: alert and oriented x3, no focal findings Psych: appropriate affect ? Objective Data Active Medications Acetaminophen (Acetaminophen 325 Mg Tablet) 650 mg PO Q6H PRN PRN Reason: Pain, Mild (Pain Scale 1-3) Atorvastatin Calcium (Atorvastatin Calcium 20 Mg Tablet) 20 mg PO BEDTIME [facility] Last Admin: 05/08/21 21:45 Dose: 20 mg Documented by: SHANON Baricitinib (Baricitinib 2 Mg Tablet) 4 mg PO Q24H [facility] Stop: 05/18/21 14:01 Last Admin: 05/08/21 15:42 Dose: 4 mg Documented by: CATRINA Benzonatate (Benzonatate 100 Mg Capsule) 100 mg PO TID [facility] Last Admin: 05/09/21 08:10 Dose: 100 mg Documented by: GEETA Dexamethasone Sodium Phosphate (Dexamethasone Sod Phosphate 4 Mg/Ml Vial) 6 mg IVPUSH DAILY [facility] Stop: 05/12/21 09:01 Last Admin: 05/09/21 08:10 Dose: 6 mg Documented by: GEETA Dextrose (Dextrose 50 % 25 Gm/50 Ml Vial) 25 gm IVPUSH Q15M PRN; Protocol PRN Reason: per Hypoglycemia Standing Ord. Enoxaparin Sodium (Enoxaparin Sodium 40 Mg/0.4 Ml Syringe) 40 mg SUBCUT Q24H [facility] Last Admin: 05/08/21 15:42 Dose: 40 mg Documented by: CATRINA Famotidine (Famotidine 20 Mg Tablet) 20 mg PO BID [facility] Last Admin: 05/09/21 08:10 Dose: 20 mg Documented by: GEETA Glipizide (Glipizide Xl 10 Mg Tab.Er.24) 10 mg PO DAILY [facility] Last Admin: 05/09/21 08:10 Dose: 10 mg Documented by: GEETA Glucose (Glucose Gel 15 Gm Gel..Gram.) 15 gm PO Q15M PRN; Protocol PRN Reason: per Hypoglycemia Standing Ord. Insulin Glargine (Insulin Glargine,Hum.Rec.Anlog 100 Unit/Ml 10 Ml Vial) 8 unit SUBCUT BEDTIME [facility] Last Admin: 05/08/21 21:45 Dose: 8 unit Documented by: SHANON Insulin Human Lispro (Insulin Lispro 100 Unit/Ml 3 Ml Vial) 0 unit SUBCUT QIDACHS [facility]; Protocol Last Admin: 05/09/21 12:53 Dose: 8 unit Documented by: GEETA Patient Own Medication ( Dapagliflozin [ Farxiga] 10 Mg Tablet) 1 each PO DAILY [facility] Last Admin: 05/09/21 09:25 Dose: 1 each Documented by: GEETA Ondansetron HCl (Ondansetron Hcl 4 Mg/2 Ml Vial) 4 mg IVPUSH Q8H PRN PRN Reason: Nausea and Vomiting Pharmacy Consult (Consult Rx Perform Med Rec) 1 each MISCELLANE ONCE PRN PRN Reason: Consult order Pioglitazone HCl (Pioglitazone Hcl 45 Mg Tablet) 45 mg PO DAILY [facility] Last Admin: 05/09/21 08:10 Dose: 45 mg Documented by: GEETA Sodium Chloride (0.9 % Sodium Chloride Flush 3 Ml Syringe) 3 ml IVFLUSH QSHIFT [facility] Last Admin: 05/09/21 08:11 Dose: 3 ml Documented by: GEETA Labs CBC & Chem 7: 05/05/21 06:09 05/05/21 06:09 Labs: Laboratory Results - last 24 hr 05/08/21 05/08/21 05/09/21 15:59 19:41 07:26 POC Glucose 259 H 311 H 193 H 05/09/21 11:11 POC Glucose 274 H Microbiology Microbiology Results: Microbiology 05/03/21 10:56 Blood Culture - Final Blood - Venous No growth after 5 days. 05/03/21 09:42 Blood Culture - Final Blood - Venous No growth after 5 days. Assessment and Plan (1) COVID-19: Status: Acute (2) Acute respiratory failure with hypoxia: Status: Acute Assessment and Plan: 60yo M with DM2 and obesity presenting with hypoxia on d#12 of illness with Covid-19 infection # acute hypoxic respiratory failure due to severe Covid-19 pneumonia Making slow progress with decreased oxygen requirement - on dexamethasone d#11/23.? inflammatory markers relatively low ,on bericitinib 4mg day 09/27 ? On 10 L of oxygen by nasal cannula, will gradually wean as tolerated , patient sitting most of the day/following frequent position change ? Continue Pepcid for GI prophylaxis, continue supportive care with cough medication ? CRP 0.69 # DM2 with steroid-induced hyperglycemia - elevated blood sugars likely due to steroid, A1c 7.9 - continue basal insulin ,correction-dose bolus insulin ,glipizide, continue Farxiga, continue to hold metformin # dyslipidemia - continue atorvastatin # VTE ppx - LMWH Quality Stroke Does the patient have a stroke diagnosis?: No VTE Prior VTE?: No VTE Risk Level:: Medical - moderate - high VTE Device Contraindication: N/A - Device Ordered VTE Drug Contraindication: N/A - Med Ordered
[2021-05-09] MEDS: Enoxaparin Sodium 40 MG/0.4 ML SYRINGE SUBCUT (15:35)
[2021-05-09 16:12] LABS: Glucose, Whole Blood 400 mg/dL (60-115)
[2021-05-09] MEDS: Atorvastatin Calcium 20 MG TABLET PO (20:14)
[2021-05-09 20:44] LABS: Glucose, Whole Blood 431 mg/dL (60-115)
[2021-05-09] MEDS: Insulin Glargine,Hum.rec.anlog 100 UNIT/ML 10 ML VIAL 8 UNIT SUBCUT (21:22)
[2021-05-10] VITALS (7 sets, daily range): BP systolic 105–128; BP diastolic 57–80; PULSE 66–85; RESP 20; TEMP 36.1–36.8; O2SAT 88–98
[2021-05-10 07:49] LABS: Glucose, Whole Blood 121 mg/dL (60-115)
[2021-05-10] MEDS: Benzonatate 100 MG CAPSULE PO ×3 (08:50→19:58)
[2021-05-10] MEDS: Pioglitazone HCL 45 MG TABLET PO (08:50)
[2021-05-10] MEDS: glipiZIDE XL 10 MG TAB.ER.24 PO (08:50)
[2021-05-10] MEDS: dexAMETHasone sod phosphate 4 MG/ML VIAL 6 MG IVPUSH (08:51)
[2021-05-10] MEDS: Famotidine 20 MG TABLET PO ×2 (08:51→19:58)
[2021-05-10] MEDS: 0.9 % Sodium Chloride Flush 3 ML SYRINGE IVFLUSH ×3 (08:52→20:02)
[2021-05-10 11:44] LABS: Glucose, Whole Blood 226 mg/dL (60-115)
[2021-05-10] MEDS: Insulin Lispro 100 UNIT/ML 3 ML VIAL SUBCUT ×4 (12:02→19:59)
--- NOTE | 2021-05-10 12:45 | P.PNIM_ITS ---
Subjective Subjective Date of Service: 05/10/21 Interval History: Feeling better this morning, mild shortness of breath with activity oxygenation dropped to 87 88% on room air, denies chest pain no palpitation no overnight acute issues no fever, no chills. Review of Systems Review of Systems: Yes all other systems are reviewed and are negative Physical Exam Vital Signs: Vital Signs: Last Vital Signs Temp 98.1 F 05/10/21 11:29 Pulse 71 05/10/21 11:29 Resp 20 05/10/21 11:29 BP 123/69 05/10/21 11:29 Pulse Ox 92 05/10/21 11:29 BMI result Body Mass Index 34.7 Gen: no respiratory distress, awake alert x3 Neck: supple,no jvd Lungs: clear to auscultation bilaterally, no rhonchi Heart: RRR, no murmurs Abd: soft, non-tender, non-distended, obese Ext: no edema Skin: warm/well-perfused Neuro: alert and oriented x3, no focal findings Psych: appropriate affect ? Objective Data Active Medications Acetaminophen (Acetaminophen 325 Mg Tablet) 650 mg PO Q6H PRN PRN Reason: Pain, Mild (Pain Scale 1-3) Atorvastatin Calcium (Atorvastatin Calcium 20 Mg Tablet) 20 mg PO BEDTIME [facility] Last Admin: 05/09/21 20:14 Dose: 20 mg Documented by: REDD Baricitinib (Baricitinib 2 Mg Tablet) 4 mg PO Q24H [facility] Stop: 05/18/21 14:01 Last Admin: 05/09/21 15:35 Dose: 4 mg Documented by: DOBROB Benzonatate (Benzonatate 100 Mg Capsule) 100 mg PO TID [facility] Last Admin: 05/10/21 08:50 Dose: 100 mg Documented by: PASCUAL Dexamethasone Sodium Phosphate (Dexamethasone Sod Phosphate 4 Mg/Ml Vial) 6 mg IVPUSH DAILY [facility] Stop: 05/12/21 09:01 Last Admin: 05/10/21 08:51 Dose: 6 mg Documented by: PASCUAL Dextrose (Dextrose 50 % 25 Gm/50 Ml Vial) 25 gm IVPUSH Q15M PRN; Protocol PRN Reason: per Hypoglycemia Standing Ord. Enoxaparin Sodium (Enoxaparin Sodium 40 Mg/0.4 Ml Syringe) 40 mg SUBCUT Q24H [facility] Last Admin: 05/09/21 15:35 Dose: 40 mg Documented by: DOBROMaxime Famotidine (Famotidine 20 Mg Tablet) 20 mg PO BID [facility] Last Admin: 05/10/21 08:51 Dose: 20 mg Documented by: PASCUAL Glipizide (Glipizide Xl 10 Mg Tab.Er.24) 10 mg PO DAILY [facility] Last Admin: 05/10/21 08:50 Dose: 10 mg Documented by: PASCUAL Glucose (Glucose Gel 15 Gm Gel..Gram.) 15 gm PO Q15M PRN; Protocol PRN Reason: per Hypoglycemia Standing Ord. Insulin Glargine (Insulin Glargine,Hum.Rec.Anlog 100 Unit/Ml 10 Ml Vial) 8 unit SUBCUT BEDTIME [facility] Last Admin: 05/09/21 21:22 Dose: 8 unit Documented by: REDD Insulin Human Lispro (Insulin Lispro 100 Unit/Ml 3 Ml Vial) 0 unit SUBCUT QIDACHS [facility]; Protocol Last Admin: 05/10/21 12:02 Dose: 8 unit Documented by: PASCUAL Patient Own Medication ( Dapagliflozin [ Farxiga] 10 Mg Tablet) 1 each PO DAILY [facility] Last Admin: 05/10/21 08:51 Dose: 1 each Documented by: PASCUAL Ondansetron HCl (Ondansetron Hcl 4 Mg/2 Ml Vial) 4 mg IVPUSH Q8H PRN PRN Reason: Nausea and Vomiting Pharmacy Consult (Consult Rx Perform Med Rec) 1 each MISCELLANE ONCE PRN PRN Reason: Consult order Pioglitazone HCl (Pioglitazone Hcl 45 Mg Tablet) 45 mg PO DAILY [facility] Last Admin: 05/10/21 08:50 Dose: 45 mg Documented by: PASCUAL Sodium Chloride (0.9 % Sodium Chloride Flush 3 Ml Syringe) 3 ml IVFLUSH QSHIFT [facility] Last Admin: 05/10/21 08:52 Dose: 3 ml Documented by: PASCUAL Labs CBC & Chem 7: 05/05/21 06:09 05/05/21 06:09 Labs: Laboratory Results - last 24 hr 05/09/21 05/09/21 05/10/21 16:07 20:41 07:44 POC Glucose 400 H* 431 H* 121 H 05/10/21 11:27 POC Glucose 226 H Assessment and Plan (1) Acute respiratory failure with hypoxia: Status: Acute (2) COVID-19: Status: Acute Assessment and Plan: 60yo M with DM2 and obesity presenting with hypoxia on d#12 of illness with Covid-19 infection #acute hypoxic respiratory failure due to severe Covid-19 pneumonia ? Feeling significantly better , oxygen 92% on room air dropped to 87 with activity - on dexamethasone d#8/.? inflammatory markers relatively low ,on bericitinib 4mg day 10/28 ? patient sitting most of the day/following frequent position change/ambulating to bathroom ? Continue Pepcid for GI prophylaxis, continue supportive care with cough medication ? Arrange for home O2 eval and possible discharge in next 24 hours # DM2 with steroid-induced hyperglycemia - elevated blood sugars likely due to steroid, A1c 7.9 - continue basal insulin increase dose to 10 units at bedtime , continue correction dose bolus insulin ,glipizide, continue Farxiga, Resume all home medications upon discharge # dyslipidemia - continue atorvastatin # VTE ppx - LMWH Quality Stroke Does the patient have a stroke diagnosis?: No VTE Prior VTE?: No VTE Risk Level:: Medical - moderate - high VTE Device Contraindication: N/A - Device Ordered VTE Drug Contraindication: N/A - Med Ordered
[2021-05-10] MEDS: Enoxaparin Sodium 40 MG/0.4 ML SYRINGE SUBCUT (14:14)
[2021-05-10 16:05] LABS: Glucose, Whole Blood 426 mg/dL (60-115)
[2021-05-10] MEDS: Atorvastatin Calcium 20 MG TABLET PO (19:58)
[2021-05-10] MEDS: Insulin Glargine,Hum.rec.anlog 100 UNIT/ML 10 ML VIAL 10 UNIT SUBCUT (19:59)
[2021-05-10 20:09] LABS: Glucose, Whole Blood 382 mg/dL (60-115)
[2021-05-11 02:39] VITALS: BP 107/59; PULSE 63; RESP 20; TEMP 36.3; O2SAT 96
[2021-05-11 07:15] VITALS: BP 118/66; PULSE 61; RESP 16; TEMP 36.9; O2SAT 94
[2021-05-11 07:52] LABS: Glucose, Whole Blood 219 mg/dL (60-115)
[2021-05-11] MEDS: Famotidine 20 MG TABLET PO (08:09)
[2021-05-11] MEDS: Pioglitazone HCL 45 MG TABLET PO (08:10)
[2021-05-11] MEDS: glipiZIDE XL 10 MG TAB.ER.24 PO (08:10)
[2021-05-11] MEDS: Benzonatate 100 MG CAPSULE PO (08:10)
[2021-05-11] MEDS: Insulin Lispro 100 UNIT/ML 3 ML VIAL SUBCUT ×2 (08:11→12:03)
[2021-05-11] MEDS: dexAMETHasone sod phosphate 4 MG/ML VIAL 6 MG IVPUSH (08:11)
[2021-05-11] MEDS: 0.9 % Sodium Chloride Flush 3 ML SYRINGE IVFLUSH (08:15)
[2021-05-11 11:15] VITALS: BP 115/70; PULSE 71; RESP 20; TEMP 36.7; O2SAT 92
[2021-05-11 11:35] VITALS: PULSE 87; O2SAT 92
[2021-05-11 12:06] LABS: Glucose, Whole Blood 202 mg/dL (60-115)
--- NOTE | 2021-05-11 12:13 | PM.DS ---
DS: Providers Provider Date of Service: 05/11/21 Date of admission: 05/03/21 13:14 Primary care physician: Balbina Turcios DO Consults: 05/03/21 12:44 Consult to Infectious Diseases Routine Consulting Provider: Nadja Wellington Reason for consultation: covid-19, hypoxia DS: Diagnosis Discharge Diagnosis (1) Acute respiratory failure with hypoxia: Status: Acute (2) COVID-19: Status: Acute DS: Summary Hospital Course Hospital Course: Chief Complaint: dyspnea 60yo M with DM2, obesity, and history of TBI who developed cough and dyspnea on 04/21, after 3 other people at his workplace tested positive for Covid-19.? He was not vaccinated against Covid-19.? He himself tested positive on 04/25.? Due to worsening coughing fits, he was evaluated in the ED on 04/30/21.? He was not hypoxic, and he was discharged on dexamethasone and azithromycin.? However, the dyspnea has worsened to the point where he has to stop walking to even go to the bathroom.? This morning, he found his SaO2 was 77% by home pulse oximeter.? He has no history of CAD, HTN, COPD, or asthma.? He was given IV dexamethasone in the ED.? CT angio of the chest was negative for PE.? He does not smoke cigarettes.? He denies chest pain, fever, nausea, vomiting, or diarrhea. History of presenting illness 60yo M with DM2 and obesity presenting with hypoxia with Covid-19 infection, patient admitted to isolation unit with a diagnosis of acute hypoxic respiratory failure due to severe Covid-19 pneumonia, patient treated with IV dexamethasone, iv bericitinib 4mg and 5 high-flow oxygen, patient responded well to above treatment his oxygen requirement gradually improved currently patient oxygenation is stable at rest but is requiring 2 L of oxygen with ambulation, patient finish course of antibiotic and dexamethasone, recommend rest plenty of fluids, being discharged on home O2 2 L with ambulation. In regard to diabetes mellitus type 2 patient noted to have elevated blood sugars likely due to use of steroids, hemoglobin A1c 7.9 recommend to resume home medications including glipizide ,Farxiga and insulin for dyslipidemia continue atorvastatin. Time Spent with Patient Time attestation: Total time spent providing and/or coordinating discharge services: Discharge coordination time: Greater than 30 minutes Quality: Stroke Does the patient have a stroke diagnosis?: No Physical Exam Vital Signs: Vital Signs: Last Vital Signs Temp 98.1 F 05/11/21 11:15 Pulse 71 05/11/21 11:15 Resp 20 05/11/21 11:15 BP 115/70 05/11/21 11:15 Pulse Ox 92 05/11/21 11:15 BMI result Body Mass Index 34.7 Gen: no respiratory distress, awake alert x3 Neck: supple,no jvd Lungs: clear to auscultation bilaterally, no rhonchi Heart: RRR, no murmurs Abd: soft, non-tender, non-distended, obese Ext: no edema Skin: warm/well-perfused Neuro: alert and oriented x3, no focal findings Psych: appropriate affect ? DS: Data Data Completed and Pending Labs on day of discharge: Laboratory Results - last 24 hr 05/10/21 05/10/21 05/11/21 16:01 19:35 07:25 POC Glucose 426 H* 382 H* 219 H 05/11/21 11:19 POC Glucose 202 H Discharge Plan Discharge Patient Disposition: Home Health Service Discharge Diagnosis: Acute hypoxic respiratory failure due to COVID-19 Referrals: Balbina Turcios DO [Primary Care Provider] - 1 Week Discharge Medications: Continued benzonatate 100 mg capsule 100 mg PO TID PRN (Reason: cough) Qty: 20 RF: 0 atorvastatin 20 mg tablet 1 tab PO BEDTIME RF: 0 glipizide 10 mg tablet 1 tab PO BID RF: 0 pioglitazone 45 mg tablet 1 tab PO DAILY RF: 0 metformin 500 mg tablet extended release 24 hr 2 tab PO BID RF: 0 Farxiga 10 mg tablet 1 tab PO DAILY RF: 0 Toujeo SoloStar U-300 Insulin 300 unit/mL (1.5 mL) insulin pen 10 unit subcut BEDTIME RF: 0 Discontinued dexamethasone 6 mg tablet 6 mg PO DAILY 6 Days Qty: 6 RF: 0 azithromycin 250 mg tablet 250 mg PO DAILY 4 Days Qty: 4 RF: 0 Discharge Orders: Discharge Order (Routine); Ordered 05/11/21 Ordered By: Rocoí Cline Diet: diabetic diet Activity on Discharge: As tolerated Stand Alone Forms: Patient Portal Discharge page Care Plan Goals: Acute hypoxic respiratory failure due to hypoxia, use 2 L of oxygen with activity and ambulation, use cough medication as needed Health Concerns: Diabetes mellitus take all home medications follow diabetic diet, continue Lipitor for hyperlipidemia Plan of Treatment: Outpatient follow-up with PCP in next 1-2 weeks Assessment: As per discharge summary
--- NOTE | 2021-05-11 12:16 | P.F2F_ITS ---
Service Date Service Date: 05/11/21 Encounter Date of encounter: 05/11/21 Reasons for Services Signs and symptoms assessed: Acute hypoxic respiratory failure due to COVID-19 Reason for halfway: diabetic teaching and other MD Overseeing Care: Balbina Turcios Homebound: Leaving the home is medically contraindicated at this time without the asist of a device and/or another person due th the listed conditions above and below. Certification: Based on the above findings, I certify that this patient is confined to the home and needs intermittent halfway care, physical therapy and/or speech therapy, or continues to need occupational therapy. The patient is under my care, and I have initiated the establishment of the plan of care. The patient will be followed by a physician who will periodically review the plan of care.
--- NOTE | 2021-05-11 13:27 | MHC.CM.PN ---
PT CLEARED TO DC HOME TODAY ON NEW HOME OXYGEN CM CALLED PTS DAUGHTER, FRANCI [phone], TO DISCUSS DC PLANNING FRANCI, WHO IS A RN CM [place] [facility] [place] REPORTS SHE DOES NOT FEEL THE PT WILL NEED VNA SHE REPORTS SHE WILL BE AVAILABLE IF HE HAS CONCERNS AROUND THE NEW O2 AND WILL LIKELY NOT WANT TO BE STAYING HOME ONCE HE IS ABLE TO GO OUT, SO WOULD NOT BE HOMEBOUND FOR LONG. PT DISCHARGED HOME TODAY WITH NEW O2 ONLY PTS DAUGHTER PROVIDED TRANSPORTATION
== END 2021-05-11 14:39 | disposition home health service (06) | DRG 137 ==
LOC: HO.ED 11:44 → HO.EDOVER 13:39 → HO.IMC 05-04 18:50
PROVIDERS: Internal Medicine; Physician Assistant; Admitting Provider Family Medicine; Emergency Provider Emergency Medicine; PCP Family Medicine; Visit Provider Hospitalist
DX: U07.1 COVID-19 (principal); J96.01 Acute respiratory failure with hypoxia; J12.82 Pneumonia due to coronavirus disease 2019; E78.5 Hyperlipidemia, unspecified; E11.65 Type 2 diabetes mellitus with hyperglycemia; E66.9 Obesity, unspecified; Z68.34 Body mass index [BMI] 34.0-34.9, adult; I25.10 Atherosclerotic heart disease of native coronary artery without angina pectoris; Z87.820 Personal history of traumatic brain injury; Z87.891 Personal history of nicotine dependence; Z79.4 Long term (current) use of insulin; Z79.84 Long term (current) use of oral hypoglycemic drugs; Z79.899 Other long term (current) drug therapy
CPT/HCPCS: 36415; 71045; 71275; 80048; 80053; 80076; 81001; 82728; 82803; 82947; 83036; 83605; 83615; 83735; 83880; 84145; 85025; 85027; 85379; 86140; 87040; 87635; 93005; 94640; 99285; 99291; J1100; J1650; J2270; Q9967